=== PATIENT | female | born 1965 | race Caucasian/White ===

== ENCOUNTER 2021-11-06 19:37 | Emergency (ER) | payer MEDICAID, SELFPAY ==
[2021-11-06 20:17] VITALS: BP 153/89; PULSE 84; RESP 18; TEMP 36.7; O2SAT 98; BMI 20.7
--- NOTE | 2021-11-06 20:59 | XRR_ITS ---
PROCEDURE INFORMATION: Exam: XR Left Hip Exam date and time: 11/06/2021 9:25 PM Age: 55 years old Clinical indication: Hip pain; Left hip; Prior surgery; Surgery date: <1 month; Surgery type: Lt hip; Additional info: Left hip pain, heavy lifting S/P surgery early October TECHNIQUE: Imaging protocol: XR Left hip. Views: 2 or 3 views hip with pelvis when performed. COMPARISON: No relevant prior studies available. FINDINGS: Bones/joints: No acute fracture. Left hip arthroplasty with cerclage wires noted in expected alignment. Soft tissues: Unremarkable. XR/XR hip LT 2-3V wo/w pel* [id number] IMPRESSION: No acute findings.
[2021-11-06 23:37] VITALS: BP 182/100; PULSE 80; RESP 16; O2SAT 96
[2021-11-07] MEDS: amlodipine 10 mg Tablet PO (00:17)
[2021-11-07] MEDS: labetalol 5 mg/mL SDV 20mL 20 MG IVP (00:17)
--- NOTE | 2021-11-07 16:44 | ED_ITS ---
HPI - Extremity Problem General: Chief complaint: Extremity Injury, Lower Stated complaint: Pain from post hip surgery L Time Seen by Provider: 11/06/21 23:11 Source: patient History of Present Illness: 55-year-old female who had left hip arthroplasty with cerclage wire placement around 3 weeks ago at an outside facility. She was lifting on something earlier today, and felt somewhat of a pop. She has experienced increasing pain since then. She took half of 1 hydrocodone 5/325 mg pill without relief. She is able to bear weight, but it is quite painful. She denies significant numbness, tingling, other problems. She is hypertensive on arrival. MD Complaint: extremity pain Onset (ago): hour(s) Pain Consistency: constant Location: left and lower extremity Quality: stabbing and aching Relieving factors: nothing Exacerbating factors: weight bearing Associated symptoms: Deny chest pain, fever(s) or short of breath Context: recent surgery/procedure Review of Systems Const: Denies: fever(s) Eyes: Denies: change in vision Card: Denies: chest pain Resp: Denies: dyspnea GI: Denies: abdominal pain or vomiting Neuro: Denies: numbness in extremities Physical Exam Const: COMMON NORMALS: no acute distress GENERAL APPEARANCE: frail appearing; not ill appearing HENMT: COMMON NORMALS: normocephalic and atraumatic HEAD & SCALP: normocephalic and atraumatic FACE & SINUS: normal facial exam Eye: COMMON NORMALS: Equal, round and reactive pupils present and EOMs intact bilaterally PUPIL: Yes Equal, round and reactive pupils present Neck/C-Spine: GENERAL: Yes trachea midline Chest: CHEST: Yes Symmetrical chest wall rise Resp: COMMON NORMALS: normal respiratory effort, No use of accessory muscles and clear to auscultation bilaterally AUSCULTATION: clear to auscultation bilaterally Cardio: COMMON NORMALS: regular rate and regular rhythm RATE: regular rate RHYTHM: regular rhythm GI: COMMON NORMALS: Normal to inspection, nondistended, normoactive bowel sounds present, Soft to palpation and non-tender PALPATION: Yes Soft to palpation Extremity: NARRATIVE EXTREMITY EXAM: Examination left lower extremity reveals a very clean completely healed lateral hip surgical scar. There is no significant swelling. There is mild tenderness anteriorly. There is some pain with internal rotation and external rotation gently. Pulses and sensation are intact distally. There is no palpable mass. Neuro: LISA COMA SCALE: document GCS findings [place] coma scale eye opening: Spontaneous Lisa coma scale verbal response: Orientated [place] coma scale motor response: Obey commands Lisa coma scale total score: 15 Course Vital Signs: Vital signs: Vital Signs Temperature 98.1 F 11/06/21 20:17 Pulse Rate 80 11/06/21 23:37 Respiratory Rate 16 11/06/21 23:37 Blood Pressure 182/100 11/06/21 23:37 Pulse Oximetry 96 11/06/21 23:37 MDM - Extremity (Nontraumatic) Medical Decision Making Surgical incision looks excellent. No sign of hemorrhage. X-ray is normal. She has no calf tenderness. No edema. She will be allowed discharge. Lab Data Radiology Impressions Hip/Pelvis X-Ray 11/06/21 20:59 IMPRESSION: No acute findings. Discharge Plan Discharge Patient Disposition: Home Clinical Impression: Acute hip pain Qualifiers: Laterality: left Qualified Code(s): M25.552 - Pain in left hip Condition: Stable Prescriptions: New oxycodone-acetaminophen 5-325 mg tablet 1 tab PO TID PRN (Reason: pain) Qty: 7 0RF Discharge Orders: Discharge ED (Routine); Ordered 11/07/21 Ordered By: Jamal Todd Referrals: Reema Delgado, BELT AND LINK ASSEMBLY SUPERVISOR [Primary Care Provider] - Discharge Diet: Advance as tolerated Discharge Activity: Increase activity as tolerated Patient Instructions: Hip Pain (ED), Opioid Safety Activity Restrictions/Additional Instructions: Return for fever, worsening pain despite treatment, worsening swelling, any other concerning symptoms. Ice to the hip will help with pain. Call your surgeon for follow-up on Tuesday. Coding Level of Care Code ED Occupational Health Physician for Yocasta Ramirez
== END 2021-11-07 00:57 | disposition home or self-care (01) ==
PROVIDERS: Emergency Provider Emergency Medicine; PCP Nurse Practitioner Family
DX: M25.552 Pain in left hip (principal); Z98.890 Other specified postprocedural states; Z96.642 Presence of left artificial hip joint
CPT/HCPCS: 73502; 96374; 99283; J3490

== ENCOUNTER 2021-12-04 17:02 | Emergency (ER) | payer MEDICAID, SELFPAY ==
[2021-12-04 18:18] VITALS: BP 89/58; PULSE 69; RESP 15; TEMP 36.9; O2SAT 96; BMI 19.5
--- NOTE | 2021-12-04 19:46 | XRR_ITS ---
PROCEDURE INFORMATION: Exam: XR Left Knee Exam date and time: 12/04/2021 8:38 PM Age: 56 years old Clinical indication: Injury or trauma; Fall; Blunt trauma; Knee; Left; Additional info: Knee pain TECHNIQUE: Imaging protocol: Radiologic exam of the Left knee. Views: 1 or 2 views. COMPARISON: No relevant prior studies available. FINDINGS: Bones/joints: There is diffuse osteopenia. Diffuse mild joint space narrowing is noted in the weight-bearing knee joint. There is no knee joint effusion. There is no intra-articular body. No acute fracture or dislocation. No chondrocalcinosis. Soft tissues: There is no foreign body. XR/XR knee LT 1-2V [id number] IMPRESSION: No acute bony abnormality.
--- NOTE | 2021-12-04 19:46 | XRR_ITS ---
PROCEDURE INFORMATION: Exam: XR Left Hip Exam date and time: 12/04/2021 8:32 PM Age: 56 years old Clinical indication: Injury or trauma; Fall; Blunt trauma (contusions or hematomas); Left; Hip; Additional info: L hip pain TECHNIQUE: Imaging protocol: Radiologic exam of the Left hip. Views: 2 or 3 views hip with pelvis when performed. COMPARISON: CR (PELVIS, ) 11/06/2021 9:25 PM FINDINGS: Bones/joints: No dislocation. No acute fracture. There is a satisfactory appearance of the left hip arthroplasty and cerclage wire. No hardware fracture or loosening. There is osteopenia. Soft tissues: Unremarkable. XR/XR hip LT 2-3V wo/w pel* [id number] IMPRESSION: No acute findings.
--- NOTE | 2021-12-04 19:49 | ED_ITS ---
HPI - General Adult General: Chief complaint: Extremity Injury, Lower Stated complaint: fall Left hip pain Time Seen by Provider: 12/04/21 19:22 History of Present Illness: Patient is a 56-year-old female with history Eliquis use presenting to emergency room after episode of fall at 9 PM. Patient was walking outside in the park when she felt lightheaded and fell onto her left side. She complains of left hip and left knee pain patient denies any LOC or head injury. Denies any other pain or. Patient has been unable to ambulate without difficulty. Patient denies any associate chest pain, shortness of breath or palpitation prior to the episode of fall. No other complaints at this time. Onset:9pm yesterday Duration: ongoing Location:home Severity:moderte Associated symptoms: Deny chest pain, dyspnea, nausea, rash, palpitations or vom iting Review of Systems Const: Denies: fever(s) or chills Eyes: Denies: change in vision ENMT: Denies: mouth pain Card: Denies: chest pain or palpitations Resp: Denies: dyspnea or non-productive cough GI: Denies: abdominal pain, nausea, vomiting or diarrhea : Denies: dysuria Musc: Reports: extremity pain (+L knee and L hip pain) Skin/Breast: Denies: rash or new lesions Neuro: Reports: other (+transient light-headedness around 9pm yesterday in the park); Denies: weakness in extremities (+) Psych: Reports: other (Normal mood) Bogdan/Lymph: Denies: easy bruising PFS ED PFSH: Social History (Updated 12/04/21 @ 19:51 by Tyler Falcon MD) Smoking and tobacco status: never smoked Alcohol intake: never Substance/Drug Use: never Physical Exam Const: COMMON NORMALS: alert HENMT: COMMON NORMALS: atraumatic HEAD & SCALP: atraumatic MOUTH: moist mucous membranes not abnormal Eye: COMMON NORMALS: EOMs intact bilaterally and conjunctivae normal CONJUNCTIVA: Yes conjunctivae normal Neck/C-Spine: COMMON NORMALS: full ROM and supple Resp: COMMON NORMALS: normal respiratory effort and clear to auscultation bilaterally AUSCULTATION: clear to auscultation bilaterally Cardio: COMMON NORMALS: regular rate RATE: regular rate GI: COMMON NORMALS: Soft to palpation and non-tender PALPATION: Yes Soft to palpation Extremity: COMMON NORMALS: full ROM Neuro: SENSORIUM/ORIENTATION: Yes alert MOTOR EXAM: No Abnormal motor strength present and Other motor observations present (no focal motor deficits) Psych: COMMON NORMALS: speech normal SPEECH: Yes normal speech MOOD & AFFECT: Yes euthymic mood Course Vital Signs: Vital signs: Vital Signs Temperature 98.5 F 12/04/21 18:18 Pulse Rate 68 12/04/21 22:15 Respiratory Rate 20 H 12/04/21 22:15 Blood Pressure 170/108 12/04/21 22:15 Pulse Oximetry 98 12/04/21 22:15 MDM - General Adult Medical Decision Making 56-year-old female presented to the emergency room after fall with complaints of left hip and left knee pain. Patient reports lightheadedness yesterday night. Troponin x2 with delta less than 5. EKG is nonischemic. Patient did not complain of chest pain. I doubt ACS at this time. X-ray imaging negative for any acute findings of the L hip and knee. Patient is given close follow-up for reassessment. Patient again reassured that she did not hit her head. Will not perform CT scan of the head today. If patient still complains of hip or knee pain, have instructed patient repeat x-ray in 1 week. Rx: Tylenol, lidocaine patch, and menthol PRN pain Disposition: Discharge. Patient counseled regarding diagnostic impression, treatment plan. Patient given ED strict return precautions to return for continuation, worsening, or development of new symptoms. Instructed to f/u w/ PCP regarding symptoms today. Patient verbalized understanding. Lab Data : 12/04/21 20:20 12/04/21 20:20 Radiology Impressions Hip/Pelvis X-Ray 12/04/21 19:46 IMPRESSION: No acute findings. Knee X-Ray 12/04/21 19:46 IMPRESSION: No acute bony abnormality. Laboratory Results WBC 7.6 10^3/uL (4.0-10.0) 12/04/21 20:20 RBC 4.27 10^6/uL (4.1-5.3) 12/04/21 20:20 Hgb 12.0 g/dL (11.5-15.3) 12/04/21 20:20 Hct 37.5 % (37.0-47.0) 12/04/21 20:20 MCV 87.8 fl (81-99) 12/04/21 20:20 MCH 28.1 pg (28.0-34.0) 12/04/21 20:20 MCHC 32.0 g/dL (30.0-36.0) 12/04/21 20:20 RDW 13.4 % (12.1-15.1) 12/04/21 20:20 Plt Count 348 10^3/cmm (130-400) 12/04/21 20:20 MPV 9.2 fL (7.4-10.4) 12/04/21 20:20 Neut % (Auto) 39.3 % 12/04/21 20:20 Lymph % (Auto) 43.1 % 12/04/21 20:20 [place] % (Auto) 10.4 % 12/04/21 20:20 Eos % (Auto) 5.9 % 12/04/21 20:20 Baso % (Auto) 1.2 % 12/04/21 20:20 Neut # (Auto) 2.97 10^3/uL (1.8-7.7) 12/04/21 20:20 Lymph # (Auto) 3.3 10^3/uL (0.8-4.8) 12/04/21 20:20 [place] # (Auto) 0.8 10^3/uL (0.2-0.9) 12/04/21 20:20 Eos # (Auto) 0.5 10^3/uL (0.0-0.8) 12/04/21 20:20 Baso # (Auto) 0.1 10^3/uL (0.0-0.1) 12/04/21 20:20 Nucleated RBC % (auto) 0 % 12/04/21 20:20 Nucleated RBCs # 0.0 /100WBC 12/04/21 20:20 Sodium 134 mmol/L (136-145) L 12/04/21 20:20 Potassium 4.6 mmol/L (3.5-5.1) 12/04/21 20:20 Chloride 98 mmol/L (98-107) 12/04/21 20:20 Carbon Dioxide 24 mmol/L (22-29) 12/04/21 20:20 Anion Gap 16.6 (5-19) 12/04/21 20:20 BUN 25 mg/dL (6-20) H 12/04/21 20:20 Creatinine 0.7 mg/dL (0.5-0.9) 12/04/21 20:20 GFR Calculation 86.6 mL/min (90-130) L 12/04/21 20:20 Glucose 100 mg/dL (65-115) 12/04/21 20:20 Calculated Osmolality 282 mOsm/kg (285-295) L 12/04/21 20:20 Calcium 9.4 mg/dL (8.5-10.5) 12/04/21 20:20 Troponin T Baseline 23 ng/L (0-10) H 12/04/21 20:20 Imaging Data Other Imaging: Radiologist's impression: [employer] [address] [address] Scan Report Signed Patient: Ronnie Bourgeois Unit #: [id number] : 09/09/1964 Age/Sex: 57 / F ADM Date: 12/04/21 Loc: ER Room/Bed: Attending Dr: Ordering Provider/Ordering MD: Tyler Falcon MD Date of Service: 12/04/21 Procedure(s): CT head wo con* [id number] Accession Number(s): [id number] Report Number: [id number] PROCEDURE INFORMATION: Exam: CT Head Without Contrast Exam date and time: 12/04/2021 9:18 PM Age: 57 years old Clinical indication: Pain; Headache TECHNIQUE: Imaging protocol: Computed tomography of the head without contrast. Radiation optimization: All CT scans at this facility use at least one of these dose optimization techniques: automated exposure control; mA and/or kV adjustment per patient size (includes targeted exams where dose is matched to clinical indication); or iterative reconstruction. COMPARISON: 1. CT head wo con* [id number] 2021-10-10 17:[address] head wo con* [id number] 2016-11-21 13:45 RADIATION DOSE METRICS: Total DLP (mGy-cm): 864.64 FINDINGS: Brain: Normal. No hemorrhage. Unremarkable white matter. No mass effect. Cerebral ventricles: No ventriculomegaly. Paranasal sinuses: Visualized sinuses are unremarkable. No fluid levels. Mastoid air cells: Visualized mastoid air cells are well aerated. Bones/joints: Unchanged heterogeneous calvarium, uncertain etiology, correlate for neoplastic, or endocrine causes. Soft tissues: Unremarkable. CT/CT head wo con* [id number] IMPRESSION: 1. Unchanged heterogeneous calvarium, of uncertain etiology, correlate for neoplastic, or endocrine causes. 2. No acute intracranial abnormality. ? Dictated By: Jim Alcaraz MD Signed By: Jim Alcaraz MD Signed Date/Time: 12/04/212133 DD/ [address] [address] XRay Report Signed Patient: Gisell Calvillo Unit #: [id number] : 1965 Age/Sex: 56 / F ADM Date: 12/04/21 Loc: ER Room/Bed: Attending Dr: Ordering Provider/Ordering MD: Tyler Falcon MD Date of Service: 12/04/21 Procedure(s): XR hip LT 2-3V wo/w pel* [id number] Accession Number(s): [id number] Report Number: [id number] PROCEDURE INFORMATION: Exam: XR Left Hip Exam date and time: 12/04/2021 8:32 PM Age: 56 years old Clinical indication: Injury or trauma; Fall; Blunt trauma (contusions or hematomas); Left; Hip; Additional info: L hip pain TECHNIQUE: Imaging protocol: Radiologic exam of the Left hip. Views: 2 or 3 views hip with pelvis when performed. COMPARISON: CR (PELVIS, ) 11/06/2021 9:25 PM FINDINGS: Bones/joints: No dislocation. No acute fracture. There is a satisfactory appearance of the left hip arthroplasty and cerclage wire. No hardware fracture or loosening. There is osteopenia. Soft tissues: Unremarkable. XR/XR hip LT 2-3V wo/w pel* [id number] IMPRESSION: No acute findings. ? Dictated By: Patricia Bernardo Signed By: Patricia Bernardo Signed Date/Time: 12/04/212114 DD/ 31 Discharge Plan Discharge Prescriptions: No Action oxycodone-acetaminophen 5-325 mg tablet 1 tab PO TID PRN (Reason: pain) Qty: 7 0RF Referrals: Reema Delgado, PAINT FORMULATOR [Primary Care Provider] - Coding Level of Care Code ED Parking Meter Mechanic for Chg Fwd Exam Comprehensive
[2021-12-04 20:25] LABS: Basophils # 0.1 10^3/uL (0.0-0.1); Basophils % 1.2 %; Eosinophils # 0.5 10^3/uL (0.0-0.8); Eosinophils % 5.9 %; Hematocrit 37.5 % (37.0-47.0); Lymphocytes # 3.3 10^3/uL (0.8-4.8); Lymphocytes % 43.1 %; Mean Corpuscular Hemoglobin 28.1 pg (28.0-34.0); Mean Corpuscular Volume 87.8 fl (81-99); Mean Platelet Volume 9.2 fL (7.4-10.4); Monocytes # 0.8 10^3/uL (0.2-0.9); Monocytes % 10.4 %; Neutrophils # 2.97 10^3/uL (1.8-7.7); Neutrophils % 39.3 %; Nucleated Red Blood Cells % 0 %; Platelet Count 348 10^3/cmm (130-400); Red Blood Count 4.27 10^6/uL (4.1-5.3); Red Cell Distribution Width 13.4 % (12.1-15.1); White Blood Count 7.6 10^3/uL (4.0-10.0)
[2021-12-04 20:44] LABS: Troponin(5th) Baseline 23 ng/L (0-10)
[2021-12-04 20:46] LABS: Anion Gap 16.6 (5-19); Blood Urea Nitrogen 25 mg/dL (6-20); Calcium 9.4 mg/dL (8.5-10.5); Carbon Dioxide 24 mmol/L (22-29); Chloride 98 mmol/L (98-107); Glomerular Filtration Rate 86.6 mL/min (90-130); Glucose 100 mg/dL (65-115); Osmolality Calculated 282 mOsm/kg (285-295); Potassium 4.6 mmol/L (3.5-5.1); Sodium 134 mmol/L (136-145)
--- NOTE | 2021-12-04 21:46 | ECG_ITS ---
[facility] Test Date: 2021-12-04 Pat Name: Gisell Calvillo Department: Room: Gender: Female Digital Media Coordinator: : 1965 Requested By: Tyler Falcon Order Number: [id number] MD: Carson Lopez M.D. Measurements Intervals [place] Rate: 68 P: 72 MN: 147 QRS: 66 QRSD: 88 T: 56 QT: 422 QTc: 450 Interpretive Statements SINUS RHYTHM No previous ECG available for comparison Electronically Signed On 12-05-2021 12:34:57 CDT by Carson Lopez M.D. [id number]
[2021-12-04 22:15] VITALS: BP 170/108; PULSE 68; RESP 20; O2SAT 98
[2021-12-04 22:45] LABS: Troponin 5 2HR 20.39 ng/L (0-10); Troponin 5 2HR Delta -2.61 ABS# (0-10)
[2021-12-04 22:56] VITALS: BP 170/100; PULSE 73; RESP 17; TEMP 36.8; O2SAT 95
[2021-12-04 22:59] VITALS: BP 170/100; PULSE 73; RESP 17; TEMP 36.8; O2SAT 95
== END 2021-12-04 23:00 | disposition home or self-care (01) ==
PROVIDERS: Emergency Provider Emergency Medicine; PCP Nurse Practitioner Family
DX: M25.552 Pain in left hip (principal)
CPT/HCPCS: 73502; 73560; 80048; 84484; 85025; 93005; 99284

== ENCOUNTER 2022-03-24 13:16 | Emergency (ER) | payer MEDICAID, SELFPAY ==
[2022-03-24] VITALS (58 sets, daily range): BP systolic 113–177; BP diastolic 72–93; PULSE 103–117; RESP 9–44; TEMP 36.6; O2SAT 82–100; BMI 20.7
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
[2022-03-24 13:32] LABS: Glucose Point of Care 434 mg/dL (70-110)
[2022-03-24 13:35] LABS: Basophils # 0.1 10^3/uL (0.0-0.1); Basophils % 0.4 %; Eosinophils % 0.2 %; Hematocrit 45.3 % (37.0-47.0); Hemoglobin 15.2 g/dL (11.5-15.3); Lymphocytes # 2.6 10^3/uL (0.8-4.8); Lymphocytes % 15.9 %; Mean Corpuscular HGB Conc 33.6 g/dL (30.0-36.0); Mean Corpuscular Hemoglobin 28.8 pg (28.0-34.0); Mean Platelet Volume 10.3 fL (7.4-10.4); Monocytes % 6.2 %; Neutrophils # 12.52 10^3/uL (1.8-7.7); Neutrophils % 76.9 %; Nucleated Red Blood Cells % 0 %; Platelet Count 512 10^3/cmm (130-400); Red Blood Count 5.27 10^6/uL (4.1-5.3); Red Cell Distribution Width 13.2 % (12.1-15.1); White Blood Count 16.3 10^3/uL (4.0-10.0)
[2022-03-24] MEDS: sodium chloride 0.9% 1,000 ML 999 ML IV ×2 (13:56→16:20)
[2022-03-24 13:58] LABS: Alanine Aminotransferase 18 U/L (0-33); Albumin Level 4.1 g/dL (3.5-5.2); Alkaline Phosphatase 172 U/L (35-105); Blood Urea Nitrogen 26 mg/dL (6-20); Calcium 10.6 mg/dL (8.5-10.5); Carbon Dioxide 21 mmol/L (22-29); Chloride 83 mmol/L (98-107); Globulin 3.6 g/dL (1.3-4.6); Glomerular Filtration Rate 64.8 mL/min (90-130); Glucose 473 mg/dL (65-115); Osmolality Calculated 286 mOsm/kg (285-295); Sodium 125 mmol/L (136-145); Total Bilirubin 0.5 mg/dL (0.15-1.2); Total Protein 7.7 g/dL (6.6-8.7)
[2022-03-24 13:59] LABS: Aspartate Amino Transferase 18 U/L (0-32)
[2022-03-24 14:03] LABS: Ketone (Acetest) Serum Negative (Negative)
[2022-03-24 15:08] LABS: Glucose Point of Care 427 mg/dL (70-110)
[2022-03-24 16:53] LABS: Glucose Point of Care 311 mg/dL (70-110)
[2022-03-24 17:14] LABS: Bilirubin Urine Neg (Negative); Blood Urine Neg (Negative); Glucose Urine UA 4+ (Normal); Ketones Urine 2+ (Negative); Leukocyte Esterase Urine Negative (Negative); Nitrate Urine Negative (Negative); Protein Urine 1+ (Negative); Urine Appearance Clear (CLEAR); Urine Color Yellow (Yellow); Urobilinogen Urine Neg (Negative); pH Urine 5 (5-7)
[2022-03-24 17:15] LABS: Add Urine Microscopic? YES
[2022-03-24 17:19] LABS: Amorphous Sediment Urine 2+ /hpf; Squamous Epithelial Cell Urine 0-4 /hpf (0-5)
[2022-03-24 18:16] LABS: Glucose Point of Care 281 mg/dL (70-110)
[2022-03-24] MEDS: insulin glargine 100 units/1 mL 20 UNIT SUBCUT (18:45)
== END 2022-03-24 19:41 | disposition home or self-care (01) ==
PROVIDERS: Emergency Provider Emergency Medicine; PCP Nurse Practitioner Family
DX: E11.65 Type 2 diabetes mellitus with hyperglycemia (principal); E86.0 Dehydration; Z79.84 Long term (current) use of oral hypoglycemic drugs; Z79.82 Long term (current) use of aspirin; Z79.4 Long term (current) use of insulin
CPT/HCPCS: 36416; 80053; 81001; 82009; 82962; 85025; 96360; 96361; 96372; 99284; J7030

== ENCOUNTER 2022-04-10 01:31 | Inpatient (IN) | payer OTHER, MEDICAID, SELFPAY ==
[2022-04-10] VITALS (19 sets, daily range): BP systolic 99–152; BP diastolic 58–89; PULSE 71–112; RESP 11–19; TEMP 36.3–39.8; O2SAT 92–99; BMI 20.7
--- NOTE | 2022-04-10 01:56 | XRR_ITS ---
PROCEDURE INFORMATION: Exam: XR Chest Exam date and time: 04/10/2022 2:24 AM Age: 56 years old Clinical indication: Fever; Additional info: Fever AMS TECHNIQUE: Imaging protocol: Radiologic exam of the chest. Views: 1 view. COMPARISON: No relevant prior studies available. FINDINGS: Tubes, catheters and devices: Monitor leads project over the chest. Lungs: No significant or acute findings. No consolidation. Pleural spaces: No significant costophrenic angle blunting. No pneumothorax. Heart/Mediastinum: Heart size is normal. Bones/joints: No acute osseous abnormality. XR/XR chest 1V portable [id number] IMPRESSION: No acute abnormality demonstrated.
--- NOTE | 2022-04-10 01:56 | CTR_ITS ---
PROCEDURE INFORMATION: Exam: CT Head Without Contrast Exam date and time: 04/10/2022 2:34 AM Age: 56 years old Clinical indication: Fever; Additional info: Fever AMS TECHNIQUE: Imaging protocol: Computed tomography of the head without contrast. Radiation optimization: All CT scans at this facility use at least one of these dose optimization techniques: automated exposure control; mA and/or kV adjustment per patient size (includes targeted exams where dose is matched to clinical indication); or iterative reconstruction. COMPARISON: No relevant prior studies available. RADIATION DOSE METRICS: Total DLP (mGy-cm): 989.58 FINDINGS: Brain: Mild prominence of the sulci consistent with diffuse atrophy. No mass effect or midline shift. Mild periventricular and subcortical white matter low-attenuation consistent with chronic small vessel ischemic changes. Bilateral basal ganglia and caudate nuclei small remote lacunar infarcts. No evidence of acute intracranial hemorrhage. Cerebral ventricles: Ventricular prominence proportional to sulci. No hydrocephalus. Paranasal sinuses: No significant or acute abnormality. No air-fluid levels. Mastoid air cells: No acute abnormality. No significant mastoid effusion. Bones/joints: No acute osseous abnormality. No acute fracture. Soft tissues: No significant soft tissue abnormalities. CT/CT head wo con* [id number] IMPRESSION: Mild atrophy and chronic/remote ischemic changes without evidence of superimposed acute infarct, hemorrhage or mass-effect at this time.
[2022-04-10 02:07] LABS: Glucose Point of Care 268 mg/dL (70-110)
[2022-04-10 02:17] LABS: Basophils % 0.3 %; Hematocrit 30.4 % (37.0-47.0); Hemoglobin 9.6 g/dL (11.5-15.3); Lymphocytes # 0.8 10^3/uL (0.8-4.8); Lymphocytes % 8.2 %; Mean Corpuscular HGB Conc 31.6 g/dL (30.0-36.0); Mean Corpuscular Hemoglobin 28.1 pg (28.0-34.0); Mean Corpuscular Volume 88.9 fl (81-99); Mean Platelet Volume 8.7 fL (7.4-10.4); Monocytes # 0.8 10^3/uL (0.2-0.9); Monocytes % 8.3 %; Neutrophils # 8.08 10^3/uL (1.8-7.7); Neutrophils % 82.8 %; Nucleated Red Blood Cells % 0 %; Platelet Count 401 10^3/cmm (130-400); Red Blood Count 3.42 10^6/uL (4.1-5.3); Red Cell Distribution Width 13.1 % (12.1-15.1); White Blood Count 9.8 10^3/uL (4.0-10.0)
--- NOTE | 2022-04-10 02:17 | W.ED.FEVER ---
Documented by User: Jamal Todd, 04/10/22 13:15 HPI - Fever General: Chief Complaint: Fever Stated Complaint: WEAKNESS Time Seen by Provider: 04/10/22 01:44 Source: patient and family History of Present Illness: 56-year-old female here with acute mental status change. She has had a couple falls last couple of days. She may or may not have had a syncopal episode tonight at home. No history of febrile illness, although she has a fever tonight. Family stated that her blood sugar was elevated at 600 yesterday, but they treated with insulin. It is 260 currently. MD elicited complaint: fever and weakness (Generalized) Onset (ago): hour(s) Context: other Exacerbating factors: nothing Relieving factors: nothing Associated symptoms: Reports abdominal pain, confusion and vomiting (once); Deny flank pain, chills, chest pain, cough, headache(s), rash or sore throat Treatments prior to arrival fever: none Review of Systems Const: Denies: fever(s), chills or body aches Eyes: Denies: change in vision Card: Denies: chest pain Resp: Denies: dyspnea, productive cough, non-productive cough or wheezing GI: Reports: abdominal pain and vomiting (once) : Denies: flank pain Skin/Breast: Denies: rash Neuro: Reports: confusion; Denies: headache(s) [facility] PFSH: Medical History (Updated 04/10/22 @ 08:23 by Zeb Benitez MD) History of hypertension History of type 2 diabetes mellitus Surgical History (Updated 04/10/22 @ 08:21 by Zeb Benitez MD) History of left hip replacement Family History (Updated 04/10/22 @ 08:21 by Zeb Benitez MD) Mother CAD (coronary artery disease) Social History (Updated 04/10/22 @ 08:21 by Zeb Benitez MD) Smoking and tobacco status: current some day smoker Alcohol intake: never Physical Exam Const: COMMON NORMALS: no acute distress GENERAL APPEARANCE: cooperative, ill appearing and frail appearing NUTRITIONAL APPEARANCE: thin ORIENTATION/CONSCIOUSNESS: Yes awake, Yes oriented to person and Yes oriented to place; not oriented to time HENMT: COMMON NORMALS: normocephalic, atraumatic and Normal external nose present HEAD & SCALP: normocephalic and atraumatic FACE & SINUS: normal facial exam and face symmetric NOSE: Normal external nose present MOUTH: Abnormal oral and palatal mucosa present (dry) Eye: COMMON NORMALS: Equal, round and reactive pupils present and EOMs intact bilaterally PUPIL: Yes Equal, round and reactive pupils present Neck/C-Spine: GENERAL: Yes trachea midline Chest: CHEST: Yes Symmetrical chest wall rise Resp: COMMON NORMALS: normal respiratory effort, No retractions, No use of accessory muscles and clear to auscultation bilaterally AUSCULTATION: clear to auscultation bilaterally Cardio: COMMON NORMALS: regular rate and regular rhythm RATE: regular rate RHYTHM: regular rhythm GI: COMMON NORMALS: Normal to inspection, nondistended, normoactive bowel sounds present Extremity: COMMON NORMALS: no pedal edema Neuro: LISA COMA SCALE: document GCS findings Lisa coma scale eye opening: Spontaneous Lisa coma scale verbal response: Confused [place] coma scale motor response: Obey commands [place] coma scale total score: 14 SENSORIUM/ORIENTATION: Yes oriented to person, Yes oriented to place and No oriented to time CRANIAL NERVES: Yes CN normal except as noted SENSORY EXAM: Yes extremities (intact) MOTOR EXAM: Normal motor muscle tone present throughout Psych: COMMON NORMALS: cooperative and speech normal SPEECH: Yes normal speech Skin: COMMON NORMALS: no rashes or lesions noted GENERAL SKIN EXAM: no rashes or lesions noted Course Vital Signs: Vital signs: Vital Signs Temperature 97.4 F L 04/10/22 11:54 Pulse Rate 101 H 04/10/22 11:54 Respiratory Rate 16 04/10/22 11:54 Blood Pressure 152/89 04/10/22 11:54 Pulse Oximetry 16 L 04/10/22 11:54 Oxygen Delivery Me thod 04/10/22 11:18 MDM - Fever Lab Data : 04/10/22 02:00 04/10/22 02:00 Radiology Impressions Chest X-Ray 04/10/22 01:56 IMPRESSION: No acute abnormality demonstrated. Head CT 04/10/22 01:56 IMPRESSION: Mild atrophy and chronic/remote ischemic changes without evidence of superimposed acute infarct, hemorrhage or mass-effect at this time. Abdomen/Pelvis CT 04/10/22 02:20 IMPRESSION: 1. Thickened urinary bladder suggestive of cystitis/UTI. 2. Incompletely visualized approximately 1.6 x 1.6 cm circumscribed fluid attenuation cyst or collection within the midline perineum. Differential diagnosis includes small posterior midline Bartholin cyst versus posterior urethral diverticulum versus small perineal abscess. 3. Previous hysterectomy. Chest CT 04/10/22 07:59 IMPRESSION: 1. No acute findings. 2. There is a 3 mm left upper lobe pulmonary nodule. For patients at low risk (minimal or absent history of smoking and of other known risk factors), no routine follow-up is indicated. For patients at high risk (history of smoking or of other known risk factors), consider optional CT Chest at 12 months. (Reference: Angie) REFERENCES: Angie Fournier, et al. Guidelines for Management of Incidental Pulmonary Nodules Detected on CT Images: From the Fleischner Society 2017. Radiology. 2017;284(1):228-243. Laboratory Results WBC 9.8 10^3/uL (4.0-10.0) 04/10/22 02:00 RBC 3.42 10^6/uL (4.1-5.3) L 04/10/22 02:00 Hgb 9.6 g/dL (11.5-15.3) L 04/10/22 02:00 Hct 30.4 % (37.0-47.0) L 04/10/22 02:00 MCV 88.9 fl (81-99) 04/10/22 02:00 MCH 28.1 pg (28.0-34.0) 04/10/22 02:00 MCHC 31.6 g/dL (30.0-36.0) 04/10/22 02:00 RDW 13.1 % (12.1-15.1) 04/10/22 02:00 Plt Count 401 10^3/cmm (130-400) H 04/10/22 02:00 MPV 8.7 fL (7.4-10.4) 04/10/22 02:00 Neut % (Auto) 82.8 % 04/10/22 02:00 Lymph % (Auto) 8.2 % 04/10/22 02:00 [place] % (Auto) 8.3 % 04/10/22 02:00 Eos % (Auto) 0.0 % 04/10/22 02:00 Baso % (Auto) 0.3 % 04/10/22 02:00 Neut # (Auto) 8.08 10^3/uL (1.8-7.7) H 04/10/22 02:00 Lymph # (Auto) 0.8 10^3/uL (0.8-4.8) 04/10/22 02:00 [place] # (Auto) 0.8 10^3/uL (0.2-0.9) 04/10/22 02:00 Eos # (Auto) 0.0 10^3/uL (0.0-0.8) 04/10/22 02:00 Baso # (Auto) 0.0 10^3/uL (0.0-0.1) 04/10/22 02:00 Nucleated RBC % (auto) 0 % 04/10/22 02:00 Nucleated RBCs # 0.0 /100WBC 04/10/22 02:00 Sodium 125 mmol/L (136-145) L 04/10/22 02:00 Potassium 3.8 mmol/L (3.5-5.1) 04/10/22 02:00 Chloride 91 mmol/L (98-107) L 04/10/22 02:00 Carbon Dioxide 24 mmol/L (22-29) 04/10/22 02:00 Anion Gap 13.8 (5-19) 04/10/22 02:00 BUN 29 mg/dL (6-20) H 04/10/22 02:00 Creatinine 0.8 mg/dL (0.5-0.9) 04/10/22 02:00 GFR Calculation 74.2 mL/min (90-130) L 04/10/22 02:00 Glucose 253 mg/dL (65-115) H 04/10/22 02:00 POC Glucose 268 mg/dL (70-110) H 04/10/22 01:55 Calculated Osmolality 274 mOsm/kg (285-295) L 04/10/22 02:00 Lactate 0.9 mmol/L (0.5-2.2) 04/10/22 02:00 Calcium 8.1 mg/dL (8.5-10.5) L 04/10/22 02:00 Total Bilirubin 0.2 mg/dL (0.15-1.2) 04/10/22 02:00 AST 42 U/L (0-32) H 04/10/22 02:00 ALT 30 U/L (0-33) 04/10/22 02:00 Alkaline Phosphatase 114 U/L (35-105) H 04/10/22 02:00 Creatine Kinase 670 U/L (26-192) H* 04/10/22 02:00 Troponin T Baseline 20 ng/L (0-10) H 04/10/22 02:00 Troponin T 120 Minute 17.80 ng/L (0-10) H 04/10/22 04:03 Delta Troponin T -2.20 ABS# (0-10) L 04/10/22 04:03 Troponin T Hi Sens 6Hr 16.50 ng/L (0-10) H 04/10/22 07:10 Troponin T Hi Sens 6Hr Delta -3.50 ng/L (0-12) L 04/10/22 07:10 C-Reactive Protein 199.7 mg/L (0.0-4.9) H 04/10/22 02:00 Total Protein 6.6 g/dL (6.6-8.7) 04/10/22 02:00 Albumin 3.2 g/dL (3.5-5.2) L 04/10/22 02:00 Globulin 3.4 g/dL (1.3-4.6) 04/10/22 02:00 Procalcitonin 2.92 ng/mL (0-0.5) H 04/10/22 02:00 Urine Color Colorless (Yellow) 04/10/22 01:56 Urine Appearance Clear (CLEAR) 04/10/22 01:56 Urine pH 6 (5-7) 04/10/22 01:56 Ur Specific [place] 1.005 (1.005-1.030) 04/10/22 01:56 Urine Protein 1+ (Negative) H 04/10/22 01:56 Urine Glucose (UA) 4+ (Normal) H 04/10/22 01:56 Urine Ketones Negative (Negative) 04/10/22 01:56 Urine Blood 3+ (Negative) H 04/10/22 01:56 Urine Nitrate Negative (Negative) 04/10/22 01:56 Urine Bilirubin Neg (Negative) 04/10/22 01:56 Urine Urobilinogen Norm mg/dL (Negative) 04/10/22 01:56 Ur Leukocyte Esterase Trace (Negative) H 04/10/22 01:56 Urine RBC 0-4 /hpf (0-2) H 04/10/22 01:56 Urine WBC None /hpf (0-5) 04/10/22 01:56 Ur Squamous Epith Cells None /hpf (0-5) 04/10/22 01:56 Amorphous Sediment Not Reportable 04/10/22 01:56 Urine Bacteria None /hpf (NONE) 04/10/22 01:56 Ethyl Alcohol < 10 mg/dL (0-10) 04/10/22 02:00 SARS-CoV-2 Ag (Rapid) negative (Negative) 04/10/22 02:00 Discharge Plan Discharge Patient Disposition: Admitted As Inpatient Admit Provider: Zeb Benitez Clinical Impression: Fever, Confusion, Hyponatremia Condition: Stable Coding Level of Care Code ED Director Business Development for Chg Fwd Exam Comprehensive Documented by User: Errol Aguilar MD 04/10/22 07:51 HPI - Fever General: Chief Complaint: Fever Stated Complaint: WEAKNESS Time Seen by Provider: 04/10/22 01:44 [facility] PFSH: Medical History (Updated 04/10/22 @ 08:23 by Zeb Benitez MD) History of hypertension History of type 2 diabetes mellitus Surgical History (Updated 04/10/22 @ 08:21 by Zeb Benitez MD) History of left hip replacement Family History (Updated 04/10/22 @ 08:21 by Zeb Benitez MD) Mother CAD (coronary artery disease) Social History (Updated 04/10/22 @ 08:21 by Zeb Benitez MD) Smoking and tobacco status: current some day smoker Alcohol intake: never Physical Exam Neuro: LISA COMA SCALE: document GCS findings Lisa coma scale total score: 14 Course Vital Signs: Vital signs: Vital Signs Temperature 97.4 F L 04/10/22 11:54 Pulse Rate 101 H 04/10/22 11:54 Respiratory Rate 16 04/10/22 11:54 Blood Pressure 152/89 11/05/22 11:54 Pulse Oximetry 16 L 04/10/22 11:54 Oxygen Delivery Me thod 04/10/22 11:18 MDM - Fever Medical Decision Making Patient presents here with fever she had some acute confusion her confusions improved here after Tylenol I took patient over from Dr. Todd pending CT scan and showed no acute abnormalities saw possible cyst or abscess to the perineum I did go evaluate that no signs of abscess no redness no tenderness to touch on my exam spoke to the hospitalist will admit she also is hyponatremic. Lab Data : 04/10/22 02:00 04/10/22 02:00 Radiology Impressions Chest X-Ray 04/10/22 01:56 IMPRESSION: No acute abnormality demonstrated. Head CT 04/10/22 01:56 IMPRESSION: Mild atrophy and chronic/remote ischemic changes without evidence of superimposed acute infarct, hemorrhage or mass-effect at this time. Abdomen/Pelvis CT 04/10/22 02:20 IMPRESSION: 1. Thickened urinary bladder suggestive of cystitis/UTI. 2. Incompletely visualized approximately 1.6 x 1.6 cm circumscribed fluid attenuation cyst or collection within the midline perineum. Differential diagnosis includes small posterior midline Bartholin cyst versus posterior urethral diverticulum versus small perineal abscess. 3. Previous hysterectomy. Chest CT 04/10/22 07:59
--- NOTE | 2022-04-10 02:18 | ECG_ITS ---
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 Measurements Intervals [place] Rate: 110 P: 71 AR: 139 QRS: 65 QRSD: 82 T: 82 QT: 323 QTc: 439 Interpretive Statements SINUS TACHYCARDIA POSSIBLE LEFT ATRIAL ENLARGEMENT [-0.1mV P-WAVE IN V1/V2] NONSPECIFIC ST & T-WAVE ABNORMALITY Compared to ECG 12/04/2021 22:08:06 T-wave abnormality now present Sinus rhythm no longer present Electronically Signed On 04-10-2022 10:50:48 CDT by Hilda Maria M.D. [email or web address]
--- NOTE | 2022-04-10 02:20 | CTR_ITS ---
PROCEDURE INFORMATION: Exam: CT Abdomen And Pelvis With Contrast Exam date and time: 04/10/2022 2:37 AM Age: 56 years old Clinical indication: Fever; Additional info: Abdominal pain fever TECHNIQUE: Imaging protocol: Computed tomography of the abdomen and pelvis with contrast. Radiation optimization: All CT scans at this facility use at least one of these dose optimization techniques: automated exposure control; mA and/or kV adjustment per patient size (includes targeted exams where dose is matched to clinical indication); or iterative reconstruction. Contrast material: OMNI 350; Contrast volume: 100 ml; Contrast route: INTRAVENOUS (IV); COMPARISON: CR XR hip LT 2-3V wo/w pel* [id number] 12/04/2021 8:32 PM RADIATION DOSE METRICS: Total DLP (mGy-cm): 326.66 FINDINGS: Lungs: Posterolateral left basilar calcified granuloma. Liver: No acute abnormality. No mass. Gallbladder and bile ducts: No acute abnormality. No calcified stones. No ductal dilation. Pancreas: No acute abnormality. No ductal dilation. Spleen: Punctate splenic calcified granulomas. Adrenal glands: No acute abnormality. No mass. Kidneys and ureters: No acute abnormality. No hydronephrosis. Stomach and bowel: Fluid and ingested contents within stomach. No disproportionate large or small bowel distention. Moderate to large amount of stool within the colon. No evidence of diverticulitis. Appendix: No findings to suggest acute appendicitis. Intraperitoneal space: No significant fluid collection. No free air. Vasculature: Diffuse abdominal aortic atherosclerotic irregularity and calcification. Lymph nodes: No enlarged lymph nodes. Urinary bladder: Thickened urinary bladder suggestive of cystitis/UTI. Reproductive: Previous hysterectomy. Bones/joints: Previous left hip arthroplasty with metallic hardware in place. Soft tissues: Incompletely visualized approximately 1.6 x 1.6 cm circumscribed fluid attenuation cyst or collection within the midline perineum. CT/CT abdomen pelvis w con* [id number] IMPRESSION: 1. Thickened urinary bladder suggestive of cystitis/UTI. 2. Incompletely visualized approximately 1.6 x 1.6 cm circumscribed fluid attenuation cyst or collection within the midline perineum. Differential diagnosis includes small posterior midline Bartholin cyst versus posterior urethral diverticulum versus small perineal abscess. 3. Previous hysterectomy.
[2022-04-10] MEDS: acetaminophen 500 mg Tablet 1000 MG PO (02:24)
[2022-04-10 02:35] LABS: Ketones Urine Negative (Negative); Protein Urine 1+ (Negative); Specific Gravity, Urine 1.005 (1.005-1.030); Urine Appearance Clear (CLEAR); Urine Color Colorless (Yellow); pH Urine 6 (5-7)
[2022-04-10 02:36] LABS: SARS Covid-2 Antigen negative (Negative)
[2022-04-10 02:36] LABS: Add Urine Microscopic? YES; Bilirubin Urine Neg (Negative); Blood Urine 3+ (Negative); Glucose Urine UA 4+ (Normal); Leukocyte Esterase Urine Trace (Negative); Nitrate Urine Negative (Negative); Urobilinogen Urine Norm (Negative)
[2022-04-10 02:38] LABS: RBC Urine 0-4 /hpf (0-2)
[2022-04-10 02:40] LABS: Alanine Aminotransferase 30 U/L (0-33); Albumin Level 3.2 g/dL (3.5-5.2); Alkaline Phosphatase 114 U/L (35-105); Anion Gap 13.8 (5-19); Aspartate Amino Transferase 42 U/L (0-32); Blood Urea Nitrogen 29 mg/dL (6-20); C Reactive Protein 199.7 mg/L (0.0-4.9); Calcium 8.1 mg/dL (8.5-10.5); Carbon Dioxide 24 mmol/L (22-29); Chloride 91 mmol/L (98-107); Globulin 3.4 g/dL (1.3-4.6); Glomerular Filtration Rate 74.2 mL/min (90-130); Glucose 253 mg/dL (65-115); Osmolality Calculated 274 mOsm/kg (285-295); Potassium 3.8 mmol/L (3.5-5.1); Sodium 125 mmol/L (136-145); Total Bilirubin 0.2 mg/dL (0.15-1.2); Total Protein 6.6 g/dL (6.6-8.7)
[2022-04-10 02:41] LABS: Lactate (Lactic Acid level) 0.9 mmol/L (0.5-2.2); Troponin(5th) Baseline 20 ng/L (0-10)
[2022-04-10] MEDS: iohexol 350 mg/mL 500 mL Btl (per mL) IV (02:42)
[2022-04-10 02:45] LABS: Procalcitonin 2.92 ng/mL (0-0.5)
[2022-04-10] MEDS: piperacillin-tazobactam 4.5 GM in sodium chloride 0.9% (plus) 50 ML IV (02:51)
[2022-04-10] MEDS: sodium chloride 0.9% 1,000 ML 999 ML IV ×2 (02:59→03:35)
[2022-04-10 03:21] LABS: Alcohol Level < 10 mg/dL (0-10)
[2022-04-10 03:22] LABS: Creatine Phosphokinase 670 U/L (26-192)
--- NOTE | 2022-04-10 04:18 | ECG_ITS ---
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 Measurements Intervals [place] Rate: 85 P: 64 NH: 139 QRS: 54 QRSD: 92 T: 60 QT: 403 QTc: 480 Interpretive Statements SINUS RHYTHM WITH OCCASIONAL VENTRICULAR PREMATURE COMPLEXES NONSPECIFIC T-WAVE ABNORMALITY Compared to ECG 04/10/2022 01:55:05 Ventricular premature complex(es) now present Sinus tachycardia no longer present T-wave abnormality still present Electronically Signed On 04-10-2022 10:53:49 CDT by Hilda Maria M.D. [id number]
--- NOTE | 2022-04-10 07:51 | PC.NURSE ---
WHILE AT DOORWAY PT IS RESTING SUPINE IN BED WITH EYES CLOSED WITH GOOD CHEST RISE AND FALL. PT IS IN NAD.
--- NOTE | 2022-04-10 07:59 | CTR_ITS ---
PROCEDURE INFORMATION: Exam: CT Chest Without Contrast; Diagnostic Exam date and time: 04/10/2022 9:04 AM Age: 56 years old Clinical indication: Fever TECHNIQUE: Imaging protocol: Diagnostic computed tomography of the chest without contrast. Radiation optimization: All CT scans at this facility use at least one of these dose optimization techniques: automated exposure control; mA and/or kV adjustment per patient size (includes targeted exams where dose is matched to clinical indication); or iterative reconstruction. COMPARISON: CR (CHEST, ) 04/10/2022 2:24 AM RADIATION DOSE METRICS: Total DLP (mGy-cm): 210.99 FINDINGS: Lungs: No focal airspace consolidation. There is a 3 mm left upper lobe pulmonary nodule on series 4, image 21. Calcified left lower lobe granuloma. Pleural spaces: Unremarkable. No pneumothorax. No pleural effusion. Heart: Heavy coronary artery calcification. Lymph nodes: Calcified mediastinal and hilar lymph nodes. Vasculature: Unremarkable. No aortic aneurysm. Spleen: Calcified splenic granulomas. Bones/joints: Unremarkable. No acute fracture. Soft tissues: Unremarkable. CT/CT chest wo con [id number] IMPRESSION: 1. No acute findings. 2. There is a 3 mm left upper lobe pulmonary nodule. For patients at low risk (minimal or absent history of smoking and of other known risk factors), no routine follow-up is indicated. For patients at high risk (history of smoking or of other known risk factors), consider optional CT Chest at 12 months. (Reference: Angie) REFERENCES: Angie Fournier et al. Guidelines for Management of Incidental Pulmonary Nodules Detected on CT Images: From the Fleischner Society 2017. Radiology. 2017;284(1):228-243.
--- NOTE | 2022-04-10 08:13 | P.HP_ITS ---
Providers/Chief Complaint Admitting Physician: Zeb Benitez MD Primary Care Provider: Reema Delgado Chief Complaint: WEAKNESS History of Present Illness Gisell Calvillo is a 56 year old female with a past medical history of insulin- dependent type 2 diabetes mellitus, hypertension, COPD, who presents to [facility] for altered mental status. During my examination, patient does not know why she is here in the hospital, she does not know why she is here, she is alert to person, to place, not to time, she follows all commands, she denies any headache, denies any blurry vision, did have one episode of nausea, no abdominal pain, did tell me that she had 1 large bowel movement yesterday, but no diarrhea, no dysuria, hematuria, no vaginal discharge, no pain complaints, no neck pain, no back pain, she does tell me that she fell yesterday night but is vague on the details and cannot exactly remember it. Denies any rashes, denies any cuts or wounds, she does show me her large right hip scar after her hip surgery but it does not really bother her. She tells me that she got the flu vaccine this year. Blood tells me that she does not get COVID vaccines. Review of Systems Const: Reports: fever(s) ENMT: Reports: throat pain Card: Denies: chest pain Resp: Denies: dyspnea Musc: Denies: neck pain or back pain Neuro: Reports: confusion; Denies: headache(s), numbness in extremities, weakness in extremities, sensory changes or dizziness Medications/Allergies Home Medications Medication Instructions Recorded Confirmed Last Taken Type aspirin 81 mg tablet,delayed 81 mg PO DAILY 03/24/22 03/24/22 Unknown History release atorvastatin 10 mg tablet 10 mg PO QPM 03/24/22 03/24/22 Unknown History citalopram 40 mg tablet 40 mg PO DAILY 03/24/22 03/24/22 Unknown History empagliflozin 25 mg tablet 25 mg PO DAILY 03/24/22 03/24/22 Unknown History (Jardiance) empagliflozin 25 mg tablet 25 mg PO DAILY #30 tabs 03/24/22 Unknown Rx (Jardiance) gabapentin 400 mg capsule 400 mg PO TID 03/24/22 03/24/22 Unknown History insulin glargine U-300 conc 300 20 unit (0.0667 mL) SUBCUT DAILY 10/19/22 Unknown Rx unit/mL (3 mL) subcutaneous pen #6 mL (Toujeo Max U-300 SoloStar) insulin glargine U-300 conc 300 20 unit SUBCUT DAILY 03/24/22 03/24/22 Unknown History unit/mL (3 mL) subcutaneous pen (Toujeo Max U-300 SoloStar) metformin 1,000 mg tablet 1,000 mg PO BID 03/24/22 03/24/22 Unknown History metformin 1,000 mg tablet 500 mg PO BID #60 tabs 03/24/22 Unknown Rx metoprolol succinate 25 mg 25 mg PO DAILY 03/24/22 03/24/22 Unknown History tablet,extended release 24 hr montelukast 10 mg tablet 10 mg PO DAILY 03/24/22 03/24/22 Unknown History Allergies Allergy/AdvReac Type Severity Reaction Status Date / Time No Known Allergies Allergy Verified 03/24/22 14:54 PFSH Acute PFSH: Medical History (Updated 04/10/22 @ 08:23 by Zeb Benitez MD) History of hypertension History of type 2 diabetes mellitus Surgical History (Updated 04/10/22 @ 08:21 by Zeb Benitez MD) History of left hip replacement Family History (Updated 04/10/22 @ 08:21 by Zeb Benitez MD) Mother CAD (coronary artery disease) Social History (Updated 04/10/22 @ 08:21 by Zeb Benitez MD) Smoking and tobacco status: current some day smoker Alcohol intake: never Vitals/I&O/Wt Last Vital Signs Temp 103.6 F H 04/10/22 01:41 Pulse 85 04/10/22 04:00 Resp 13 04/10/22 04:00 BP 105/62 04/10/22 04:00 Pulse Ox 95 04/10/22 04:00 O2 Del Method 04/10/22 02:00 04/09/22 04/10/22 04/10/22 22:59 06:59 14:59 Intake Total 1050 / 1050 Balance 1050 / 1050 Weight last 48 hrs Weight 48.081 kg Physical Exam Const: COMMON NORMALS: no acute distress EXAM LIMITATIONS: altered mental status ORIENTATION/CONSCIOUSNESS: Yes awake, Yes oriented to person and Yes oriented to place; not oriented to time HENMT: COMMON NORMALS: normocephalic HEAD & SCALP: normocephalic Eye: COMMON NORMALS: Equal, round and reactive pupils present and EOMs intact bilaterally OTHER: No nuchal rigidity Neck/C-Spine: COMMON NORMALS: no JVD Resp: COMMON NORMALS: normal respiratory effort, No retractions, No use of accessory muscles and clear to auscultation bilaterally AUSCULTATION: clear to auscultation bilaterally Cardio: COMMON NORMALS: no JVD, regular rate, regular rhythm, S1 normal heart sound present and S2 normal heart sound present RATE: regular rate RHYTHM: regular rhythm HEART SOUNDS: S1 normal heart sound present and S2 normal heart sound present GI: COMMON NORMALS: Normal to inspection, nondistended, normoactive bowel sounds present, Soft to palpation, non-tender, No hepatosplenomegaly present, no masses and no bruits PALPATION: Yes Soft to palpation and Yes No hepatosplenomegaly present Extremity: COMMON NORMALS: no pedal edema Neuro: COMMON NORMALS: CN's II-XII intact bilaterally, moves all extremities and no focal motor deficits OTHER: Alert to person, place, not to time, does follow commands Data : 04/10/22 02:00 04/10/22 02:00 Micro: Microbiology 04/10/22 02:04 Blood Culture - Preliminary Blood SPECIMEN COLLECTED 04/10/22 02:00 Blood Culture - Preliminary Blood SPECIMEN COLLECTED A&P Assessment and plan (1) Acute encephalopathy: (2) Hyponatremia: (3) Anemia: Plan Acute encephalopathy -Concerning for meningitis -Chest x-ray no focal pneumonia, will do CT of the chest -UA not convincing for UTI, however CT did show bladder wall thickening -CT of the abdomen also showed Incompletely visualized approximately 1.6 x 1.6 cm circumscribed fluid attenuation cyst or collection within the midline perineum. Differential diagnosis includes small posterior midline Bartholin cyst versus posterior urethral diverticulum versus small perineal abscess. -She has no pelvic complaints, no vaginal discharge, nothing I could palpate on physical exam -COVID-negative -Flu pending -Pro-Joseluis 2.92, CRP 199 -ESR pending -CK6 70 -WBC 9.8 -Remains encephalopathic in the emergency room, T-max 103.6 Plan -Discussed with ER provider, will obtain lumbar puncture -Work-up as above -Started on vancomycin, meropenem -Monitor mentation closely, neurochecks, aspiration precautions -Started on Decadron -Follow urine cultures, blood cultures, sputum cultures, CSF studies -HIV, acute hep, diarrhea, trichomonas -Low-dose sliding scale for diabetes, Lantus 10 units at bedtime -Hold off on anticoagulation for DVT prophylaxis as there is plans a lumbar puncture SCDs -Full code Acute on chronic hyponatremia, serum sodium 125, her serum sodium roughly a month ago was also 125, etiology unclear -We will give IV fluids monitor serum sodiums Attestations Medical Necessity Statement*: Patient requires hospitalization for acute encephalopathy, hyponatremia, anemia, inpatient, greater than 2 minutes Coding Level of Care Code Acute Vendor Management Specialist for Yocasta Ramirez Diagnoses Acute encephalopathy G93.40 Hyponatremia E87.1 Anemia D64.9
--- NOTE | 2022-04-10 08:18 | ECG_ITS ---
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 Measurements Intervals [place] Rate: 95 P: 55 SC: 173 QRS: -58 QRSD: 127 T: 11 QT: 367 QTc: 463 Interpretive Statements SINUS RHYTHM LEFT ANTERIOR FASCICULAR BLOCK [QRS AXIS <= -45, QR IN I, RS IN II] LEFT VENTRICULAR HYPERTROPHY AND ST-T CHANGE ANTEROSEPTAL MYOCARDIAL INFARCTION , PROBABLY RECENT Compared to ECG 12/04/2021 22:08:06 Left anterior fascicular block now present Left ventricular hypertrophy now present ST (T wave) deviation now present Myocardial infarct finding now present Electronically Signed On 04-10-2022 10:58:08 CDT by Hilda Maria M.D. [id number]
--- NOTE | 2022-04-10 08:28 | W.ED.FEVER ---
HPI - Fever General: Chief Complaint: Fever Stated Complaint: WEAKNESS Time Seen by Provider: 04/10/22 01:44 Source: patient and family History of Present Illness: a Context: other Treatments prior to arrival fever: none PFSH ED PFSH: Medical History (Updated 04/10/22 @ 08:23 by Zeb Benitez MD) History of hypertension History of type 2 diabetes mellitus Surgical History (Updated 04/10/22 @ 08:21 by Zeb Benitez MD) History of left hip replacement Family History (Updated 04/10/22 @ 08:21 by Zeb Benitez MD) Mother CAD (coronary artery disease) Social History (Updated 04/10/22 @ 08:21 by Zeb Benitez MD) Smoking and tobacco status: current some day smoker Alcohol intake: never Procedures Lumbar Puncture Time Out Performed: Yes Patient Position: left lateral decubitus Skin Prep: Povidone-Iodine 1% Local Anesthetic: lidocaine 1% Amount of anesthesia used (mL): 5 Spinal Needle Gauge: 20G Interspace Used: L4-L5 Fluid Initially Obtained: clear Complications: none Course Vital Signs: Vital signs: Vital Signs Temperature 103.6 F H 04/10/22 01:41 Pulse Rate 85 04/10/22 04:00 Respiratory Rate 13 04/10/22 04:00 Blood Pressure 105/62 04/10/22 04:00 Pulse Oximetry 95 04/10/22 04:00 Oxygen Delivery Me thod 04/10/22 02:00 MDM - Fever Medical Decision Making Addendum to previous note for procedure of a lumbar puncture Lab Data : 04/10/22 02:00 04/10/22 02:00 Radiology Impressions Chest X-Ray 04/10/22 01:56 IMPRESSION: No acute abnormality demonstrated. Head CT 04/10/22 01:56 IMPRESSION: Mild atrophy and chronic/remote ischemic changes without evidence of superimposed acute infarct, hemorrhage or mass-effect at this time. Abdomen/Pelvis CT 04/10/22 02:20 IMPRESSION: 1. Thickened urinary bladder suggestive of cystitis/UTI. 2. Incompletely visualized approximately 1.6 x 1.6 cm circumscribed fluid attenuation cyst or collection within the midline perineum. Differential diagnosis includes small posterior midline Bartholin cyst versus posterior urethral diverticulum versus small perineal abscess. 3. Previous hysterectomy. Laboratory Results WBC 9.8 10^3/uL (4.0-10.0) 04/10/22 02:00 RBC 3.42 10^6/uL (4.1-5.3) L 04/10/22 02:00 Hgb 9.6 g/dL (11.5-15.3) L 04/10/22 02:00 Hct 30.4 % (37.0-47.0) L 04/10/22 02:00 MCV 88.9 fl (81-99) 04/10/22 02:00 MCH 28.1 pg (28.0-34.0) 04/10/22 02:00 MCHC 31.6 g/dL (30.0-36.0) 04/10/22 02:00 RDW 13.1 % (12.1-15.1) 04/10/22 02:00 Plt Count 401 10^3/cmm (130-400) H 04/10/22 02:00 MPV 8.7 fL (7.4-10.4) 04/10/22 02:00 Neut % (Auto) 82.8 % 04/10/22 02:00 Lymph % (Auto) 8.2 % 04/10/22 02:00 [place] % (Auto) 8.3 % 04/10/22 02:00 Eos % (Auto) 0.0 % 04/10/22 02:00 Baso % (Auto) 0.3 % 04/10/22 02:00 Neut # (Auto) 8.08 10^3/uL (1.8-7.7) H 04/10/22 02:00 Lymph # (Auto) 0.8 10^3/uL (0.8-4.8) 04/10/22 02:00 [place] # (Auto) 0.8 10^3/uL (0.2-0.9) 04/10/22 02:00 Eos # (Auto) 0.0 10^3/uL (0.0-0.8) 04/10/22 02:00 Baso # (Auto) 0.0 10^3/uL (0.0-0.1) 04/10/22 02:00 Nucleated RBC % (auto) 0 % 04/10/22 02:00 Nucleated RBCs # 0.0 /100WBC 04/10/22 02:00 Sodium 125 mmol/L (136-145) L 04/10/22 02:00 Potassium 3.8 mmol/L (3.5-5.1) 04/10/22 02:00 Chloride 91 mmol/L (98-107) L 04/10/22 02:00 Carbon Dioxide 24 mmol/L (22-29) 04/10/22 02:00 Anion Gap 13.8 (5-19) 04/10/22 02:00 BUN 29 mg/dL (6-20) H 04/10/22 02:00 Creatinine 0.8 mg/dL (0.5-0.9) 04/10/22 02:00 GFR Calculation 74.2 mL/min (90-130) L 04/10/22 02:00 Glucose 253 mg/dL (65-115) H 04/10/22 02:00 POC Glucose 268 mg/dL (70-110) H 04/10/22 01:55 Calculated Osmolality 274 mOsm/kg (285-295) L 04/10/22 02:00 Lactate 0.9 mmol/L (0.5-2.2) 04/10/22 02:00 Calcium 8.1 mg/dL (8.5-10.5) L 04/10/22 02:00 Total Bilirubin 0.2 mg/dL (0.15-1.2) 04/10/22 02:00 AST 42 U/L (0-32) H 04/10/22 02:00 ALT 30 U/L (0-33) 04/10/22 02:00 Alkaline Phosphatase 114 U/L (35-105) H 04/10/22 02:00 Creatine Kinase 670 U/L (26-192) H* 04/10/22 02:00 Troponin T Baseline 20 ng/L (0-10) H 04/10/22 02:00 Troponin T 120 Minute 17.80 ng/L (0-10) H 04/10/22 04:03 Delta Troponin T -2.20 ABS# (0-10) L 04/10/22 04:03 Troponin T Hi Sens 6Hr 16.50 ng/L (0-10) H 04/10/22 07:10 Troponin T Hi Sens 6Hr Delta -3.50 ng/L (0-12) L 04/10/22 07:10 C-Reactive Protein 199.7 mg/L (0.0-4.9) H 04/10/22 02:00 Total Protein 6.6 g/dL (6.6-8.7) 04/10/22 02:00 Albumin 3.2 g/dL (3.5-5.2) L 04/10/22 02:00 Globulin 3.4 g/dL (1.3-4.6) 04/10/22 02:00 Procalcitonin 2.92 ng/mL (0-0.5) H 04/10/22 02:00 Urine Color Colorless (Yellow) 04/10/22 01:56 Urine Appearance Clear (CLEAR) 04/10/22 01:56 Urine pH 6 (5-7) 04/10/22 01:56 Ur Specific Louise 1.005 (1.005-1.030) 04/10/22 01:56 Urine Protein 1+ (Negative) H 04/10/22 01:56 Urine Glucose (UA) 4+ (Normal) H 04/10/22 01:56 Urine Ketones Negative (Negative) 04/10/22 01:56 Urine Blood 3+ (Negative) H 04/10/22 01:56 Urine Nitrate Negative (Negative) 04/10/22 01:56 Urine Bilirubin Neg (Negative) 04/10/22 01:56 Urine Urobilinogen Norm mg/dL (Negative) 04/10/22 01:56 Ur Leukocyte Esterase Trace (Negative) H 04/10/22 01:56 Urine RBC 0-4 /hpf (0-2) H 04/10/22 01:56 Urine WBC None /hpf (0-5) 04/10/22 01:56 Ur Squamous Epith Cells None /hpf (0-5) 04/10/22 01:56 Amorphous Sediment Not Reportable 04/10/22 01:56 Urine Bacteria None /hpf (NONE) 04/10/22 01:56 Ethyl Alcohol < 10 mg/dL (0-10) 04/10/22 02:00 SARS-CoV-2 Ag (Rapid) negative (Negative) 04/10/22 02:00 Discharge Plan Discharge Patient Disposition: Admitted As Inpatient Admit Provider: Zeb Benitez Clinical Impression: Fever, Confusion, Hyponatremia Condition: Stable Coding Level of Care Code ED Medical Affairs Director for Jessicag James
--- NOTE | 2022-04-10 08:31 | PC.NURSE ---
COLLECTED CSF SPECIMEN FROM DR. ROLLINS AFTER CONSENT SIGNED. PROVIDED SPECIMEN TO LAB AND CONFIRMED PT LABEL.
--- NOTE | 2022-04-10 08:41 | PC.NURSE ---
REPORT CALLED TO JW PRESTON RN.
[2022-04-10] MEDS: sodium chloride 0.9% 1,000 ML 75 ML IV ×2 (08:48→21:00)
[2022-04-10] MEDS: cefTRIAXone 1,000 MG in sodium chloride 0.9% (plus) 50 ML 100 MG IV (08:48)
[2022-04-10] MEDS: pantoprazole 40 mg SDV IVP (08:49)
[2022-04-10] MEDS: dexamethasone 10 mg/mL INJ IVP ×2 (08:49→13:58)
[2022-04-10 10:38] LABS: Estmated Average Glucose 303; Hemoglobin A1C 12.2 % (4.0-6.0)
[2022-04-10 10:40] LABS: Iron 11 ug/dL (37-145); Thyroid Stimulating Hormone 3.44 uIU/mL (0.27-4.20)
[2022-04-10 10:48] LABS: Appearance CSF CLEAR (CLEAR); Color CSF COLORLESS (COLORLESS); Cyto Order Verification No Order; Mononuclear WBC CSF % 100 % (50-90); Polynuclear WBC CSF % 0 % (0-10); Red Blood Cell CSF 0 10^3/uL (0-0); White Blood Cell CSF 1 /uL (0-5)
[2022-04-10 10:53] LABS: Reticulocyte % 1.3 % (0.5-2.0)
[2022-04-10 10:53] LABS: CSF Mononuclear # 0.001 10^3/uL (50-90); Pathology Referral Yes
[2022-04-10 10:54] LABS: HIV 1 & 2 Antibody Non-Reactive (Non-Reactiv); HIV 1 & 2 Antigen Non-Reactive (Non-Reactiv)
[2022-04-10 10:56] LABS: Erythrocyte Sedimentation Rate 45 mm/hr (0-15)
[2022-04-10 11:07] LABS: Glucose Point of Care 99 mg/dL (70-110)
[2022-04-10] MEDS: aspirin 81 mg EC Tablet PO (11:10)
[2022-04-10] MEDS: gabapentin 400 mg Capsule PO ×3 (11:10→20:37)
[2022-04-10 11:11] LABS: NT Pro B Type Natriuretic Pept 876 pg/mL (0-125)
[2022-04-10 11:13] LABS: Glucose CSF 118 mg/dL (40-70); Total Protein CSF 30 mg/dL (15-45)
[2022-04-10] MEDS: ipratropium-albuterol 3 mL Neb INHALATION ×3 (11:14→19:29)
[2022-04-10 11:18] LABS: Hepatitis A Antibody IgM Non-Reactive (Nonreactive); Hepatitis B Core IgM Non-Reactive (Nonreactive); Hepatitis B Surface Antigen Non-Reactive (Nonreactive); Hepatitis C Virus Antibody Non-Reactive (Nonreactive)
[2022-04-10] MEDS: meropenem 2,000 MG in sodium chloride 0.9% (100 ml) 100 ML 200 MG IV (11:18)
[2022-04-10 11:40] LABS: Influenza A by IFA negative (Negative); Influenza B by IFA negative (Negative)
[2022-04-10] MEDS: vancomycin 1,000 MG in sodium chloride 0.9% 250 ML 250 MG IV (11:59)
[2022-04-10 12:24] LABS: Rapid Plasma Reagin Syphilis Nonreactive (Nonreactive)
[2022-04-10 12:38] LABS: Ferritin 229 ng/mL (15-150); Iron 11 ug/dL (37-145); Percent Saturation 4.8 % (20-50); Total Iron Binding Capacity 228 mcg/dl; Unsaturated Iron Binding 217 ug/dL (112-347)
[2022-04-10 12:53] LABS: Vitamin B12 1080 pg/mL (232-1245)
[2022-04-10] MEDS: nicotine 14 mg Patch 1 PATCH TRANSDERMA (13:57)
[2022-04-10] MEDS: acyclovir 500 MG in sodium chloride 0.9% (plus) 100 ML 110 MG IV (16:10)
[2022-04-10 16:57] LABS: Glucose Point of Care 586 mg/dL (70-110)
[2022-04-10 17:00] LABS: Glucose Point of Care 498 mg/dL (70-110)
[2022-04-10 17:15] LABS: Glucose Point of Care 486 mg/dL (70-110)
[2022-04-10] MEDS: meropenem 2,000 MG in sodium chloride 0.9% (100 ml) 100 ML 100 MG IV (17:33)
[2022-04-10] MEDS: insulin lispro 100 unit/1 mL SUBCUT (17:33)
[2022-04-10 18:38] LABS: Glucose Point of Care 510 mg/dL (70-110)
[2022-04-10 18:43] LABS: Glucose Point of Care 590 mg/dL (70-110)
[2022-04-10 18:49] LABS: Anion Gap 18.2 (5-19); Blood Urea Nitrogen 23 mg/dL (6-20); Calcium 7.6 mg/dL (8.5-10.5); Carbon Dioxide 18 mmol/L (22-29); Chloride 93 mmol/L (98-107); Glomerular Filtration Rate 57.4 mL/min (90-130); Glucose 486 mg/dL (65-115); Osmolality Calculated 285 mOsm/kg (285-295); Potassium 4.2 mmol/L (3.5-5.1); Sodium 125 mmol/L (136-145)
[2022-04-10] MEDS: acetaminophen 325 mg Tablet 650 MG PO (19:20)
[2022-04-10] MEDS: insulin lispro 100 unit/1 mL 12 UNIT SUBCUT (19:56)
[2022-04-10 20:28] LABS: Glucose Point of Care 509 mg/dL (70-110)
[2022-04-10] MEDS: insulin glargine 100 units/1 mL 10 UNIT SUBCUT (20:38)
[2022-04-10 21:10] LABS: Glucose Point of Care 468 mg/dL (70-110)
[2022-04-10 22:56] LABS: Glucose Point of Care 419 mg/dL (70-110)
[2022-04-10] MEDS: insulin lispro 100 unit/1 mL 14 UNIT SUBCUT (23:30)
[2022-04-10] MEDS: acyclovir 500 MG in sodium chloride 0.9% (plus) 100 ML 100 MG IV (23:46)
[2022-04-11] VITALS (16 sets, daily range): BP systolic 99–158; BP diastolic 63–93; PULSE 86–108; RESP 14–19; TEMP 36.4–36.7; O2SAT 92–99
[2022-04-11] MEDS: meropenem 2,000 MG in sodium chloride 0.9% (100 ml) 100 ML 100 MG IV ×3 (01:54→17:26)
[2022-04-11] MEDS: vancomycin 750 MG in sodium chloride 0.9% 250 ML 250 MG IV ×2 (03:29→20:27)
[2022-04-11 05:38] LABS: Basophils % 0.1 %; Hematocrit 28.3 % (37.0-47.0); Hemoglobin 8.9 g/dL (11.5-15.3); Lymphocytes # 0.8 10^3/uL (0.8-4.8); Lymphocytes % 8.7 %; Mean Corpuscular HGB Conc 31.4 g/dL (30.0-36.0); Mean Corpuscular Hemoglobin 28.1 pg (28.0-34.0); Mean Corpuscular Volume 89.3 fl (81-99); Mean Platelet Volume 8.9 fL (7.4-10.4); Monocytes # 0.4 10^3/uL (0.2-0.9); Monocytes % 4.6 %; Neutrophils # 8.06 10^3/uL (1.8-7.7); Neutrophils % 86.2 %; Nucleated Red Blood Cells % 0 %; Platelet Count 373 10^3/cmm (130-400); Red Blood Count 3.17 10^6/uL (4.1-5.3); Red Cell Distribution Width 13.2 % (12.1-15.1); White Blood Count 9.4 10^3/uL (4.0-10.0)
[2022-04-11 06:04] LABS: Alanine Aminotransferase 32 U/L (0-33); Albumin Level 2.8 g/dL (3.5-5.2); Alkaline Phosphatase 103 U/L (35-105); Anion Gap 15.4 (5-19); Aspartate Amino Transferase 28 U/L (0-32); Blood Urea Nitrogen 19 mg/dL (6-20); C Reactive Protein 134.9 mg/L (0.0-4.9); Calcium 8.2 mg/dL (8.5-10.5); Carbon Dioxide 22 mmol/L (22-29); Chloride 102 mmol/L (98-107); Globulin 3.5 g/dL (1.3-4.6); Glomerular Filtration Rate 103.4 mL/min (90-130); Glucose 244 mg/dL (65-115); Magnesium 2.5 mg/dL (1.7-2.3); Osmolality Calculated 290 mOsm/kg (285-295); Phosphorus 2.2 mg/dL (2.5-4.5); Potassium 4.4 mmol/L (3.5-5.1); Sodium 135 mmol/L (136-145); Total Bilirubin 0.2 mg/dL (0.15-1.2); Total Protein 6.3 g/dL (6.6-8.7)
[2022-04-11 06:06] LABS: Procalcitonin 1.56 ng/mL (0-0.5)
[2022-04-11 06:36] LABS: Glucose Point of Care 347 mg/dL (70-110)
[2022-04-11] MEDS: acyclovir 500 MG in sodium chloride 0.9% (plus) 100 ML 100 MG IV ×3 (06:38→22:15)
[2022-04-11] MEDS: ipratropium-albuterol 3 mL Neb INHALATION ×4 (07:23→20:34)
[2022-04-11] MEDS: insulin lispro 100 unit/1 mL SUBCUT ×3 (08:14→17:26)
[2022-04-11] MEDS: gabapentin 400 mg Capsule PO ×3 (08:15→20:26)
[2022-04-11] MEDS: nicotine 14 mg Patch 1 PATCH TRANSDERMA (08:15)
[2022-04-11] MEDS: pantoprazole 40 mg SDV IVP (08:15)
[2022-04-11] MEDS: aspirin 81 mg EC Tablet PO (08:15)
[2022-04-11 11:50] LABS: Glucose Point of Care 391 mg/dL (70-110)
[2022-04-11] MEDS: amlodipine 10 mg Tablet PO (11:53)
[2022-04-11 13:30] LABS: Basophils % 0.1 %; Hematocrit 28.2 % (37.0-47.0); Hemoglobin 8.8 g/dL (11.5-15.3); Lymphocytes # 1.2 10^3/uL (0.8-4.8); Lymphocytes % 8.3 %; Mean Corpuscular HGB Conc 31.2 g/dL (30.0-36.0); Mean Corpuscular Hemoglobin 28.2 pg (28.0-34.0); Mean Corpuscular Volume 90.4 fl (81-99); Mean Platelet Volume 9.2 fL (7.4-10.4); Monocytes # 0.7 10^3/uL (0.2-0.9); Monocytes % 4.8 %; Neutrophils # 12.68 10^3/uL (1.8-7.7); Neutrophils % 86.3 %; Nucleated Red Blood Cells % 0 %; Platelet Count 444 10^3/cmm (130-400); Red Blood Count 3.12 10^6/uL (4.1-5.3); Red Cell Distribution Width 13.5 % (12.1-15.1); White Blood Count 14.7 10^3/uL (4.0-10.0)
--- NOTE | 2022-04-11 13:37 | PM.PN ---
Subjective Subjective: Patient was seen this morning, she is alert oriented x3, follows all commands, she has no fevers, no chills, no nausea, no vomiting, no pain complaints, denies any vaginal discharge, denies any hematuria, no dysuria, no diarrhea, no abdominal pain, no headache, blurry vision Vitals/I&O/Wt Last Vital Signs Temp 97.8 F 04/11/22 12:00 Pulse 100 04/11/22 12:00 Resp 19 H 04/11/22 12:00 BP 141/78 04/11/22 12:00 Pulse Ox 97 04/11/22 12:00 O2 Del Method 04/11/22 11:15 04/10/22 04/11/22 04/11/22 23:59 06:59 14:59 Intake Total 920 / 920 Balance 920 / 920 Weight last 48 hrs Weight 48.081 kg Weight 48.081 kg Physical Exam Const: COMMON NORMALS: no acute distress and patient oriented x3 Eye: COMMON NORMALS: Equal, round and reactive pupils present and EOMs intact bilaterally PUPIL: Yes Equal, round and reactive pupils present Neck/C-Spine: COMMON NORMALS: no lymphadenopathy and no meningeal signs Resp: COMMON NORMALS: normal respiratory effort, No retractions, No use of accessory muscles and clear to auscultation bilaterally AUSCULTATION: clear to auscultation bilaterally Cardio: COMMON NORMALS: regular rate, regular rhythm, S1 normal heart sound present and S2 normal heart sound present RATE: regular rate RHYTHM: regular rhythm HEART SOUNDS: S1 normal heart sound present and S2 normal heart sound present GI: COMMON NORMALS: Normal to inspection, nondistended, normoactive bowel sounds present, non-tender, no masses and no bruits Extremity: COMMON NORMALS: no pedal edema Neuro: COMMON NORMALS: patient oriented x3 MENINGEAL SIGNS: Yes no meningeal signs Psych: COMMON NORMALS: mental status grossly normal Data : 04/11/22 12:54 04/11/22 05:25 Micro: Microbiology 04/10/22 08:28 Gram Stain - Final Cerebrospinal Fluid CSF Culture - Preliminary 04/10/22 02:04 Blood Culture - Preliminary Blood NEGATIVE TO DATE 04/10/22 02:00 Blood Culture - Preliminary Blood NEGATIVE TO DATE 04/10/22 08:28 Cryptococcal Antigen - Final Cerebrospinal Fluid 04/10/22 10:40 Bacterial Antigens - Final Urine,Clean Catch A&P Assessment and plan (1) Acute encephalopathy: (2) Hyponatremia: (3) Anemia: (4) Iron (Fe) deficiency anemia: Plan Acute encephalopathy -In the emergency room she was encephalopathic with high-grade fevers as high as 103 -Resolved -Concerning for possible viral meningitis -CSF clear, colorless, 1 WBC, glucose 118, total protein 30, cryptococcal antigen negative, gram stain negative -Chest x-ray no focal pneumonia, CT chest no focal pneumonia -UA not convincing for UTI, however CT did show bladder wall thickening -CT of the abdomen also showed Incompletely visualized approximately 1.6 x 1.6 cm circumscribed fluid attenuation cyst or collection within the midline perineum. Differential diagnosis includes small posterior midline Bartholin cyst versus posterior urethral diverticulum versus small perineal abscess. -She has no pelvic complaints, no vaginal discharge, nothing I could palpate on physical exam -COVID-negative -Flu negative -Pro-Joseluis 1.56, CRP 134 -ESR 45 -CK6 70 -WBC 14.6 likely secondary to steroid use -Hemoglobin 8.8, has evidence of iron deficiency anemia Plan -Continue acyclovir -Started on vancomycin, meropenem -Monitor mentation closely, neurochecks, aspiration precautions -Hold Decadron -Follow urine cultures, blood cultures, sputum cultures, CSF cultures -HIV, acute hep, diarrhea, trichomonas -Continue SCDs for DVT prophylaxis, anticoagulation relatively contraindicated due to concerns for iron deficiency anemia -Full code Hyperglycemia likely secondary Decadron, Decadron has been stopped, continue home Lantus 20 units at bedtime, with high-dose sliding scale Acute on chronic hyponatremia, resolved, 135, her serum sodium roughly a month ago was also 125, etiology unclear -We will give IV fluids monitor serum sodiums Iron deficiency anemia, with low iron, ferritin elevated, monitor for Hemoccult stool Attestations Medical Necessity Statement*: Patient requires hospitalization, inpatient, greater than 2 midnights, for concerns for viral meningitis, iron deficiency anemia Coding Level of Care Code Acute 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
[2022-04-11] MEDS: sodium chloride 0.9% 1,000 ML 75 ML IV (14:23)
[2022-04-11 15:42] LABS: Creatine Phosphokinase 416 U/L (26-192)
--- NOTE | 2022-04-11 15:44 | PC.NURSE ---
Notified primary RN of critical lab result
[2022-04-11 17:11] LABS: Glucose Point of Care 308 mg/dL (70-110)
[2022-04-11] MEDS: insulin glargine 100 units/1 mL 20 UNIT SUBCUT (21:19)
--- NOTE | 2022-04-11 21:27 | PC.NURSE ---
Messaged about patient complaint of chest pain which had resolved by the time the nurse answered her call light. The patient had went to the and was walking around in her room when she experienced sternal chest pain, sharp 12/13. Vs HR 103 BP 107/68, SAT 100%. The nurse reviewed telemetry and no apparrent changes, appeared to be some artifact. Made aware and an EKG was ordered.
--- NOTE | 2022-04-11 21:29 | ECG_ITS ---
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 Measurements Intervals [place] Rate: 110 P: 48 MS: 108 QRS: 31 QRSD: 93 T: 32 QT: 331 QTc: 448 Interpretive Statements SINUS TACHYCARDIA WITH SHORT MS INTERVAL NONSPECIFIC T-WAVE ABNORMALITY ABNORMAL RHYTHM ECG Compared to ECG 04/10/2022 04:20:14 Short MS interval now present Sinus rhythm no longer present Ventricular premature complex(es) no longer present T-wave abnormality still present Electronically Signed On 04-13-2022 12:14:18 TIMBER HARVESTER OPERATOR by Hilda Maria M.D. [id number]
[2022-04-11 21:31] LABS: Glucose Point of Care 202 mg/dL (70-110)
[2022-04-12] VITALS (13 sets, daily range): BP systolic 106–142; BP diastolic 22–90; PULSE 98–116; RESP 16–18; TEMP 36.7–36.8; O2SAT 92–100
[2022-04-12] MEDS: meropenem 2,000 MG in sodium chloride 0.9% (100 ml) 100 ML 100 MG IV (00:42)
[2022-04-12 04:50] LABS: Basophils % 0.3 %; Eosinophils # 0.1 10^3/uL (0.0-0.8); Eosinophils % 0.8 %; Hematocrit 34.9 % (37.0-47.0); Hemoglobin 10.4 g/dL (11.5-15.3); Lymphocytes # 2.6 10^3/uL (0.8-4.8); Lymphocytes % 21.1 %; Mean Corpuscular HGB Conc 29.8 g/dL (30.0-36.0); Mean Corpuscular Hemoglobin 28.3 pg (28.0-34.0); Mean Corpuscular Volume 95.1 fl (81-99); Mean Platelet Volume 8.8 fL (7.4-10.4); Monocytes # 0.8 10^3/uL (0.2-0.9); Monocytes % 6.6 %; Neutrophils # 8.53 10^3/uL (1.8-7.7); Neutrophils % 70.9 %; Nucleated Red Blood Cells % 0 %; Platelet Count 427 10^3/cmm (130-400); Red Blood Count 3.67 10^6/uL (4.1-5.3); Red Cell Distribution Width 13.9 % (12.1-15.1); White Blood Count 12.1 10^3/uL (4.0-10.0)
[2022-04-12 06:09] LABS: Alanine Aminotransferase 30 U/L (0-33); Albumin Level 2.9 g/dL (3.5-5.2); Alkaline Phosphatase 96 U/L (35-105); Anion Gap 12.3 (5-19); Aspartate Amino Transferase 20 U/L (0-32); Blood Urea Nitrogen 15 mg/dL (6-20); Calcium 8.8 mg/dL (8.5-10.5); Carbon Dioxide 24 mmol/L (22-29); Chloride 107 mmol/L (98-107); Globulin 3.3 g/dL (1.3-4.6); Glomerular Filtration Rate 86.6 mL/min (90-130); Glucose 144 mg/dL (65-115); Magnesium 2.4 mg/dL (1.7-2.3); Osmolality Calculated 291 mOsm/kg (285-295); Phosphorus 1.5 mg/dL (2.5-4.5); Potassium 4.3 mmol/L (3.5-5.1); Sodium 139 mmol/L (136-145); Total Bilirubin 0.2 mg/dL (0.15-1.2); Total Protein 6.2 g/dL (6.6-8.7)
[2022-04-12 06:11] LABS: Procalcitonin 0.96 ng/mL (0-0.5)
[2022-04-12] MEDS: acyclovir 500 MG in sodium chloride 0.9% (plus) 100 ML 100 MG IV (06:16)
[2022-04-12] MEDS: sodium chloride 0.9% 1,000 ML 50 ML IV (06:18)
[2022-04-12 06:26] LABS: Glucose Point of Care 132 mg/dL (70-110)
[2022-04-12] MEDS: ipratropium-albuterol 3 mL Neb INHALATION ×3 (08:29→16:15)
[2022-04-12] MEDS: pantoprazole 40 mg SDV IVP (08:42)
[2022-04-12] MEDS: aspirin 81 mg EC Tablet PO (08:42)
[2022-04-12] MEDS: amlodipine 10 mg Tablet PO (08:42)
[2022-04-12] MEDS: gabapentin 400 mg Capsule PO ×2 (08:42→15:35)
[2022-04-12] MEDS: nicotine 14 mg Patch 1 PATCH TRANSDERMA (08:42)
--- NOTE | 2022-04-12 10:55 | PM.DCS ---
Discharge Providers Date of Admission: 04/10/22 07:21 Date of Discharge: April 12, 2022 Attending Provider at Admission: Zeb Benitez MD Attending Provider at Discharge: Zeb Benitez MD Primary Care Provider: Reema Delgado Diagnoses at Discharge Discharge Diagnosis (1) Acute encephalopathy: Status: Acute (2) Hyponatremia: Status: Acute (3) Anemia: Status: Acute (4) Iron (Fe) deficiency anemia: Status: Acute Reason for Visit Reason for Visit: WEAKNESS Hospital Course Hospital Course 56-year female who was admitted for management of febrile event and confusion. 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 I did examine the patient today she does not have any peritoneal abscess. Tiny her CT abdomen pelvis findings with Dr. Carlin he thinks these findings are benign and incidental I would give her Dr. Ascencio's follow-up appointment at the time of discharge Patient is able to walk, able to care for self, awake and alert, no signs of meningoencephalitis NIH 0 Her hemoglobin A1c is 12, I will increase the dose of long-acting insulin to 22 units instead of 20 she can continue her Jardiance and metformin Physical Exam Narrative: NIH 0 Pleasant and cooperative No active skin rash Euvolemic S1, S2 Abdomen soft Currently on room air Discharge Data Studies Completed and Pending Completed Studies During Hospitalization Category Date Time Status CT abdomen pelvis w con* [id number] Urgent Cat Scan 04/10/22 02:[address] chest wo con [id number] Stat Cat Scan 04/10/22 07:[address] head wo con* [id number] Stat Cat Scan 04/10/22 01:56 Completed XR chest 1V portable [id number] Stat Exams 04/10/22 01:56 Completed Pending at discharge Category Date Time Status Adenosine CSF [Adenosine Deaminase CSF] Routine Lab 04/10/22 08:28 Received Aspergillus AG,EIA,Serum Routine Lab 04/10/22 09:50 Received Bacterial Antigen Stat Lab 04/10/22 10:40 Results Blood Culture Stat Lab 04/10/22 02:04 Results C Reactive Protein AM LABS Lab 04/13/22 04:00 Ordered CSF Culture & Gram Stain Stat Lab 04/10/22 08:28 Results Coccidioides AB CF Serum Routine Lab 04/10/22 09:50 Received Complete Blood Count w/Auto AM LABS Lab 04/13/22 04:00 Ordered Comprehensive Metabolic Panel AM LABS Lab 04/13/22 04:00 Ordered Cryptococcal Antigen w/ Reflex Stat Lab 04/10/22 09:50 Received Herpes Simplex 1&2 IgG AB Routine Lab 04/10/22 09:50 Received Herpes Simplex Virus DNA Stat Lab 04/10/22 09:50 Received Lymes Disease Antibodies CSF Stat Lab 04/10/22 08:28 Received Magnesium AM LABS Lab 04/13/22 04:00 Ordered Occult Blood Stool [Immunochemical Fecal OCB] Routine Lab 04/10/22 09:25 Uncollected Phosphorus AM LABS Lab 04/13/22 04:00 Ordered Procalcitonin AM LABS Lab 04/13/22 04:00 Ordered Respiratory Panel 2 Routine Lab 04/10/22 14:53 Ordered Sputum Culture and Gram Stain Stat Lab 04/10/22 07:59 Uncollected [place] Enceph.Virus IFA CSF Stat Lab 04/10/22 08:28 Received Tick Panel Stat Lab 04/10/22 09:50 Received Urine Culture Stat Lab 04/10/22 10:40 Results VDRL on CSF Stat Lab 04/10/22 08:28 Received Vancomycin Trough Timed Lab 04/13/22 08:00 Ordered West Nile Virus AB Panel,CSF Stat Lab 04/10/22 08:28 Received Radiology Impressions Chest X-Ray 04/10/22 01:56 IMPRESSION: No acute abnormality demonstrated. Head CT 04/10/22 01:56 IMPRESSION: Mild atrophy and chronic/remote ischemic changes without evidence of superimposed acute infarct, hemorrhage or mass-effect at this time. Abdomen/Pelvis CT 04/10/22 02:20 IMPRESSION: 1. Thickened urinary bladder suggestive of cystitis/UTI. 2. Incompletely visualized approximately 1.6 x 1.6 cm circumscribed fluid attenuation cyst or collection within the midline perineum. Differential diagnosis includes small posterior midline Bartholin cyst versus posterior urethral diverticulum versus small perineal abscess. 3. Previous hysterectomy. Chest CT 04/10/22 07:59 IMPRESSION: 1. No acute findings. 2. There is a 3 mm left upper lobe pulmonary nodule. For patients at low risk (minimal or absent history of smoking and of other known risk factors), no routine follow-up is indicated. For patients at high risk (history of smoking or of other known risk factors), consider optional CT Chest at 12 months. (Reference: Angie) REFERENCES: Angie Fournier, et al. Guidelines for Management of Incidental Pulmonary Nodules Detected on CT Images: From the Fleischner Society 2017. Radiology. 2017;284(1):228-243. Laboratory Results WBC 12.1 10^3/uL (4.0-10.0) H 04/12/22 04:31 RBC 3.67 10^6/uL (4.1-5.3) L 04/12/22 04:31 Hgb 10.4 g/dL (11.5-15.3) L 04/12/22 04:31 Hct 34.9 % (37.0-47.0) L 04/12/22 04:31 MCV 95.1 fl (81-99) D 04/12/22 04:31 MCH 28.3 pg (28.0-34.0) 04/12/22 04:31 MCHC 29.8 g/dL (30.0-36.0) L 04/12/22 04:31 RDW 13.9 % (12.1-15.1) 04/12/22 04:31 Plt Count 427 10^3/cmm (130-400) H 04/12/22 04:31 MPV 8.8 fL (7.4-10.4) 04/12/22 04:31 Neut % (Auto) 70.9 % 04/12/22 04:31 Lymph % (Auto) 21.1 % 04/12/22 04:31 Harlan % (Auto) 6.6 % 04/12/22 04:31 Eos % (Auto) 0.8 % 04/12/22 04:31 Baso % (Auto) 0.3 % 04/12/22 04:31 Reticulocyte % (Auto) 1.3 % (0.5-2.0) 04/10/22 09:50 Neut # (Auto) 8.53 10^3/uL (1.8-7.7) H 04/12/22 04:31 Lymph # (Auto) 2.6 10^3/uL (0.8-4.8) 04/12/22 04:31 Harlan # (Auto) 0.8 10^3/uL (0.2-0.9) 04/12/22 04:31 Eos # (Auto) 0.1 10^3/uL (0.0-0.8) 04/12/22 04:31 Baso # (Auto) 0.0 10^3/uL (0.0-0.1) 04/12/22 04:31 Nucleated RBC % (auto) 0 % 04/12/22 04:31 Nucleated RBCs # 0.0 /100WBC 04/12/22 04:31 ESR 45 mm/hr (0-15) H 04/10/22 09:50 Sodium 139 mmol/L (136-145) 04/12/22 05:15 Potassium 4.3 mmol/L (3.5-5.1) 04/12/22 05:15 Chloride 107 mmol/L (98-107) 04/12/22 05:15 Carbon Dioxide 24 mmol/L (22-29) 04/12/22 05:15 Anion Gap 12.3 (5-19) 04/12/22 05:15 BUN 15 mg/dL (6-20) 04/12/22 05:15 Creatinine 0.7 mg/dL (0.5-0.9) 04/12/22 05:15 GFR Calculation 86.6 mL/min (90-130) L 04/12/22 05:15 Glucose 144 mg/dL (65-115) H 04/12/22 05:15 POC Glucose 132 mg/dL (70-110) H 04/12/22 06:07 Estimat Average Glucose 303 04/10/22 09:50 Hemoglobin A1c 12.2 % (4.0-6.0) H 04/10/22 09:50 Calculated Osmolality 291 mOsm/kg (285-295) 04/12/22 05:15 Lactic Acid 1.0 mmol/L (0.5-2.2) 04/10/22 09:50 Lactate 0.9 mmol/L (0.5-2.2) 04/10/22 02:00 Calcium 8.8 mg/dL (8.5-10.5) 04/12/22 05:15 Phosphorus 1.5 mg/dL (2.5-4.5) L 04/12/22 05:15 Magnesium 2.4 mg/dL (1.7-2.3) H 04/12/22 05:15 Iron 11 ug/dL (37-145) L 04/10/22 09:50 Iron 11 ug/dL (37-145) L 04/10/22 09:50 TIBC 228 mcg/dl 04/10/22 09:50 % Saturation 4.8 % (20-50) L 04/10/22 09:50 Unsat Iron Binding 217 ug/dL (112-347) 04/10/22 09:50 Ferritin 229 ng/mL (15-150) H 04/10/22 09:50 Total Bilirubin 0.2 mg/dL (0.15-1.2) 04/12/22 05:15 AST 20 U/L (0-32) 04/12/22 05:15 ALT 30 U/L (0-33) 04/12/22 05:15 Alkaline Phosphatase 96 U/L (35-105) 04/12/22 05:15 Creatine Kinase 416 U/L (26-192) H* 04/11/22 05:25 Troponin T Baseline 20 ng/L (0-10) H 04/10/22 02:00 Troponin T 120 Minute 17.80 ng/L (0-10) H 04/10/22 04:03 Delta Troponin T -2.20 ABS# (0-10) L 04/10/22 04:03 Troponin T Hi Sens 6Hr 16.50 ng/L (0-10) H 04/10/22 07:10 Troponin T Hi Sens 6Hr Delta -3.50 ng/L (0-12) L 04/10/22 07:10 C-Reactive Protein 63.0 mg/L (0.0-4.9) H 04/12/22 05:15 NT-Pro-B Natriuret Pep 876 pg/mL (0-125) H 04/10/22 09:50 Total Protein 6.2 g/dL (6.6-8.7) L 04/12/22 05:15 Albumin 2.9 g/dL (3.5-5.2) L 04/12/22 05:15 Globulin 3.3 g/dL (1.3-4.6) 04/12/22 05:15 Vitamin B12 1080 pg/mL (232-1245) 04/10/22 09:50 Folate 15.0 ng/mL (4.8-37.3) 04/10/22 09:50 Procalcitonin 0.96 ng/mL (0-0.5) H 04/12/22 05:15 TSH 3.44 uIU/mL (0.27-4.20) 04/10/22 09:50 Urine Color Colorless (Yellow) 04/10/22 01:56 Urine Appearance Clear (CLEAR) 04/10/22 01:56 Urine pH 6 (5-7) 04/10/22 01:56 Ur Specific Chancellor 1.005 (1.005-1.030) 04/10/22 01:56 Urine Protein 1+ (Negative) H 04/10/22 01:56 Urine Glucose (UA) 4+ (Normal) H 04/10/22 01:56 Urine Ketones Negative (Negative) 04/10/22 01:56 Urine Blood 3+ (Negative) H 04/10/22 01:56 Urine Nitrate Negative (Negative) 04/10/22 01:56 Urine Bilirubin Neg (Negative) 04/10/22 01:56 Urine Urobilinogen Norm mg/dL (Negative) 04/10/22 01:56 Ur Leukocyte Esterase Trace (Negative) H 04/10/22 01:56 Urine RBC 0-4 /hpf (0-2) H 04/10/22 01:56 Urine WBC None /hpf (0-5) 04/10/22 01:56 Ur Squamous Epith Cells None /hpf (0-5) 04/10/22 01:56 Amorphous Sediment Not Reportable 04/10/22 01:56 Urine Bacteria None /hpf (NONE) 04/10/22 01:56 CSF Appearance Clear (CLEAR) 04/10/22 08:28 CSF Color Colorless (COLORLESS) 04/10/22 08:28 CSF Specific Chancellor 1.010 04/10/22 08:28 CSF WBC 1 /uL (0-5) 04/10/22 08:28 CSF RBC 0 10^3/uL (0-0) 04/10/22 08:28 CSF Mononuclear # Auto 0.001 10^3/uL (50-90) L 04/10/22 08:28 CSF Mononuclear WBCs % 100 % (50-90) H 04/10/22 08:28 CSF Polynuclear WBCs # 0.000 10^3/uL (0-10) 04/10/22 08:28 CSF Polynuclear WBCs % 0 % (0-10) 04/10/22 08:28 CSF Diff Comment Yes 04/10/22 08:28 CSF Glucose 118 mg/dL (40-70) H 04/10/22 08:28 CSF Total Protein 30 mg/dL (15-45) 04/10/22 08:28 Ethyl Alcohol < 10 mg/dL (0-10) 04/10/22 02:00 RPR Nonreactive (Nonreactive) 04/10/22 09:50 Hepatitis A IgM Ab Non-reactive (Nonreactive) 04/10/22 09:50 Hep Bs Antigen Non-reactive (Nonreactive) 04/10/22 09:50 Hep B Core IgM Ab Non-reactive (Nonreactive) 04/10/22 09:50 Hepatitis C Antibody Non-reactive (Nonreactive) 04/10/22 09:50 HIV 1&2 Ab & HIV 1 Ag Non-reactive (Non-Reactiv) 04/10/22 09:50 HIV 1&2 Antibody Non-reactive (Non-Reactiv) 04/10/22 09:50 Influenza Type A Ag negative (Negative) 04/10/22 10:41 Influenza Type B Ag negative (Negative) 04/10/22 10:41 SARS-CoV-2 Ag (Rapid) negative (Negative) 04/10/22 02:00 Vitals Last Vital Signs Temp 98.1 F 04/12/22 07:38 Pulse 108 H 04/12/22 08:38 Resp 18 04/12/22 08:30 BP 117/74 04/12/22 07:38 Pulse Ox 96 04/12/22 08:30 O2 Del Method 04/12/22 08:30 Discharge Plan Discharge Patient Disposition: Home Condition: Stable Prescriptions: New cefpodoxime 200 mg tablet 200 mg PO BID Qty: 20 0RF Rx Instructions: must administer with a meal/food doxycycline hyclate 100 mg tablet 100 mg PO BID 10 Days Qty: 20 0RF Continued citalopram 40 mg tablet 40 mg PO DAILY atorvastatin 10 mg tablet 10 mg PO QPM gabapentin 400 mg capsule 400 mg PO TID aspirin 81 mg Tablet,Delayed Release (Dr/Ec) 81 mg PO DAILY metformin 1,000 mg tablet 1,000 mg PO BID montelukast 10 mg tablet 10 mg PO DAILY Jardiance 25 mg tablet 25 mg PO DAILY Qty: 30 0RF lisinopril 10 mg Tablet 10 mg PO DAILY Changed Levemir FlexTouch U-100 Insuln 100 unit/mL (3 mL) insulin pen 22 unit SUBCUT BEDTIME Qty: 15 0RF Discharge Orders: Discharge Order (Routine); Ordered 04/12/22 Ordered By: Daryl Howard Referrals: Reema Delgado FNP [Primary Care Provider] - 04/26/22 2:30 pm (Appointment with Catracho Childress MD) Jignesh Ascencio MD [Physician] - 4-7 days (DR ASCENCIO WILL CALL WITH APPOINTMENT) Discharge Activity: Increase activity as tolerated Patient Instructions: Doxycycline (By mouth), Cefpodoxime Proxetil (By mouth), Anemia (GEN), Opioid Safety Discharge Attestations Time Spent in Discharge Care*: less than 30 min Quality Metrics Clinical Quality Measures [ No reported AMI, CVA or VTE this stay] Coding Level of Care Code Acute Chg FW DC note Diagnoses Acute encephalopathy G93.40 Hyponatremia E87.1 Anemia D64.9 Iron (Fe) deficiency anemia D50.9
[2022-04-12] MEDS: meropenem 2,000 MG in sodium chloride 0.9% (100 ml) 100 ML 200 MG IV (11:11)
[2022-04-12 11:31] LABS: Glucose Point of Care 378 mg/dL (70-110)
[2022-04-12] MEDS: insulin lispro 100 unit/1 mL SUBCUT ×2 (11:46→17:12)
--- NOTE | 2022-04-12 12:11 | PC.CHAP ---
Pastoral Care Encounter/Spiritual Assessment Type of Contact [] Declined boarding house cook visit [] Patient/Family/Request visit [] Outpatient visit [] Follow-up visit [] Physician referral [] Code/Alert [x] Routine visit [] Staff referral [] Actively dying [] Patient sleeping [] Family support [] [] Out of room [] Palliative care [] [x] Receiving care in room [] Pre-surgical visit [] Trauma [] Long length of stay [] ICU visit [] Other: Relational/Emotional Strength [] Patient feels connected with others/family/visitors/staff [] Distress [] Loneliness/isolation [] Abandonment Spirituality of Patient [] Person of Naa [] Attends Amish of their Naa [] Believes in Prayer [] Reads Bible or Rastafari materials [] There are Spiritual issues to be addressed Synchro Assembler Interventions [] Prayer [] Active listening [] Non-anxious presence [] Spiritual/emotional support [] Crisis/trauma care [] Spiritual counseling [] Bereavement support [] Provided bereavement packet [] Provided Bible/devotional materials [] Provided toy/stuffed animal, coloring book to patient or family member [] Provided Communion [] Anointing/[place]man [] Salvation [] Completed spiritual assessment [] Other: Impact on Illness or Injury [] Angry [] Fearful [] Anxious [] Often cries [] Exhaustion [] Unable to work [] Unable to attend scientologist [] Unable to walk/stand [] Unable to read [] Unable to drive [] Unable to eat/drink [] Unable to sleep [] Unable to be with family [] Patient intubated [] Other: Summary Time spent with patient
[2022-04-12 16:41] LABS: Glucose Point of Care 185 mg/dL (70-110)
[2022-04-13 11:53] LABS: HSV 2 IGG Type Specific AB <0.90 index
[2022-04-13 14:18] LABS: Lyme AB Screen <0.90 index
[2022-04-14 20:09] LABS: Adenosine Deaminase CSF 0.5 U/L (<7.0)
[2022-04-16 17:17] LABS: Aspergillus AG,EIA,Serum NOT DETECTED; Aspergillus Galactomannan Inde <0.50
[2022-04-17 00:33] LABS: VDRL on CSF NON-REACTIVE
[2022-04-17 16:12] LABS: HSV 1 DNA NOT DETECTED; HSV 2 DNA NOT DETECTED; HSV Source SERUM
[2022-04-17 18:48] LABS: West Nile Virus AB (IGG) <1.30 index; West Nile Virus AB (IGM) <0.90 index
[2022-04-18 17:12] LABS: St. Louis Enceph.Virus IGG CSF <1:1; St. Louis Enceph.Virus IGM CSF <1:1
[2022-04-18 17:17] LABS: Cryptococcal Source SERUM
[2022-04-20 17:38] LABS: RMSF IGG NOT DETECTED; RMSF IGM NOT DETECTED
[2022-04-21 17:03] LABS: E. Chaffeensis AB IGG <1:64; E. Chaffeensis AB IGM <1:20
[2022-04-21 18:18] LABS: Coccidioides AB CF Serum <1:2
[2022-04-21 19:52] LABS: Lyme Disease AB (IGG),IBL NO BANDS DETECTED; Lyme Disease AB (IGM), IBL NO BANDS DETECTED
== END 2022-04-12 19:00 | disposition home or self-care (01) | DRG 75 ==
LOC: ER 07:51 → MEDSURG 08:06
PROVIDERS: Emergency Medicine; Admitting Provider Family Medicine; Emergency Provider Emergency Medicine; PCP Nurse Practitioner Family; Visit Provider Family Medicine
DX: A87.9 Viral meningitis, unspecified (principal); E87.1 Hypo-osmolality and hyponatremia; G93.40 Encephalopathy, unspecified; E11.65 Type 2 diabetes mellitus with hyperglycemia; T38.0X5A Adverse effect of glucocorticoids and synthetic analogues, initial encounter; I10 Essential (primary) hypertension; J44.9 Chronic obstructive pulmonary disease, unspecified; Z96.642 Presence of left artificial hip joint; F17.200 Nicotine dependence, unspecified, uncomplicated; D50.9 Iron deficiency anemia, unspecified; E86.0 Dehydration; N30.90 Cystitis, unspecified without hematuria; N75.0 Cyst of Bartholin's gland; N36.1 Urethral diverticulum; Z79.82 Long term (current) use of aspirin; Z79.84 Long term (current) use of oral hypoglycemic drugs
CPT/HCPCS: 36415; 36416; 62270; 70450; 71045; 71250; 74177; 80048; 80053; 80074; 80307; 80503; 81001; 82550; 82607; 82728; 82746; 82945; 82962; 83036; 83540; 83550; 83605; 83735; 83880; 84100; 84145; 84157; 84311; 84315; 84443; 84484; 85025; 85045; 85651; 86140; 86403; 86592; 86617; 86618; 86635; 86653; 86666; 86695; 86696; 86757; 86788; 86789; 87040; 87070; 87075; 87086; 87205; 87305; 87327; 87426; 87491; 87530; 87591; 87661; 87804; 87806; 89050; 93005; 94640; 96365; 96372; 96375; 99285; C9113; J0133; J0696; J1100; J1815; J2185; J2543; J3370; J7030; J7050; Q9967

== ENCOUNTER → 2022-04-28 10:10 | Outpatient (BNVA) | payer OTHER, MEDICAID, SELFPAY | PROVIDERS: PCP Nurse Practitioner Family; Visit Provider Urology | DX: N90.89 Other specified noninflammatory disorders of vulva and perineum (principal); N36.9 Urethral disorder, unspecified; R19.00 Intra-abdominal and pelvic swelling, mass and lump, unspecified site | CPT/HCPCS: 81003 ==

== ENCOUNTER 2022-05-16 17:31 | Emergency (ER) | payer OTHER, MEDICAID, SELFPAY ==
[2022-05-16 17:35] VITALS: BP 142/88; PULSE 102; RESP 17; TEMP 36.7; O2SAT 95; BMI 20.7
[2022-05-16 17:40] VITALS: BP 136/91; PULSE 100; O2SAT 93
--- NOTE | 2022-05-16 17:47 | XRR_ITS ---
PROCEDURE INFORMATION: Exam: XR Chest Exam date and time: 05/16/2022 5:55 PM Age: 56 years old Clinical indication: Dyspnea TECHNIQUE: Imaging protocol: Radiologic exam of the chest. Views: 1 view. COMPARISON: CT chest con [id number] 04/10/2022 9:04 AM FINDINGS: Lungs: Incidental benign calcified granuloma the left lung base. Pleural spaces: Unremarkable. No pleural effusion. No pneumothorax. Heart/Mediastinum: There are calcified mediastinal and perihilar lymph nodes consistent with prior granulomatous exposure. Bones/joints: Unremarkable. XR/XR chest 1V portable [id number] IMPRESSION: No evidence for acute cardiopulmonary disease.
--- NOTE | 2022-05-16 17:47 | ECG_ITS ---
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 Measurements Intervals [place] Rate: 101 P: 62 OR: 126 QRS: 33 QRSD: 88 T: 46 QT: 343 QTc: 445 Interpretive Statements SINUS TACHYCARDIA NONSPECIFIC T-WAVE ABNORMALITY ABNORMAL RHYTHM ECG Compared to ECG 04/11/2022 21:47:31 Short OR interval no longer present T-wave abnormality still present Electronically Signed On 05-17-2022 14:57:23 TRIMMER AND BORER MACHINE OPERATOR by Carson Lopez M.D. [id number]
--- NOTE | 2022-05-16 18:13 | W.ED.SOB ---
HPI - SOB/Dyspnea General: Chief Complaint: Shortness of Breath/Dyspnea Stated Complaint: SOB Time Seen by Provider: 05/16/22 17:36 Source: patient Mode of arrival: EMS Limitations: no limitations History of Present Illness: HPI Narrative: See nursing assessment. Patient with complaints of shortness of breath started 2 days ago. She had nonproductive cough and occasional slight fever up to 99 degrees. She states she does smoke but denies any previous history of asthma or COPD. She does have insulin-dependent diabetes mellitus. She denies any heart problems. Patient states she has occasional pleuritic chest pain. Patient also reports that she has been vaccinated for influenza. She denies any vaccination for COVID. EMS gave patient nebulizer prior to arrival. She states she feels better. She denies any allergies to medications. Associated symptoms: Reports chest congestion and fever(s) (Occasional mild); Deny abdominal pain, chest pain, hemoptysis, nausea, palpitations or vomiting Review of Systems Const: Reports: fever(s) (Occasional mild); Denies: chills Eyes: Denies: change in vision ENMT: Denies: throat pain Card: Denies: chest pain or palpitations Resp: Reports: dyspnea, non-productive cough, pain on inspiration and chest congestion; Denies: wheezing, stridor or hemoptysis GI: Denies: abdominal pain, nausea or vomiting : Denies: flank pain Musc: Denies: neck pain or back pain Skin/Breast: Denies: rash or pruritus Neuro: Denies: headache(s) or numbness in extremities Psych: Denies: anxiety Bogdan/Lymph: Denies: enlarged lymph nodes PFSH ED PFSH: Medical History Acute encephalopathy Anemia Confusion Fever History of hypertension History of type 2 diabetes mellitus Hyponatremia Iron (Fe) deficiency anemia Pelvic mass Surgical History History of left hip replacement Family History Mother CAD (coronary artery disease) Social History Smoking and tobacco status: current some day smoker Alcohol intake: never Physical Exam Const: COMMON NORMALS: no acute distress, patient oriented x3, no limitations and well nourished GENERAL APPEARANCE: cooperative HENMT: COMMON NORMALS: normocephalic and atraumatic HEAD & SCALP: normocephalic and atraumatic FACE & SINUS: normal facial exam Eye: COMMON NORMALS: EOMs intact bilaterally Neck/C-Spine: COMMON NORMALS: full ROM, no lymphadenopathy, supple and no meningeal signs GENERAL: Yes normal visual inspection Lymph: LYMPHATIC: no lymphadenopathy noted Chest: COMMONS NORMALS: normal inspection of the chest and normal palpation of entire chest wall CHEST: No Ecchymosis present and No rash Resp: COMMON NORMALS: normal respiratory effort and No retractions EFFORT & INSPECTION: No respiratory distress OTHER: Mild crackles in the left base. Cardio: COMMON NORMALS: regular rate, regular rhythm and Peripheral pulses 2+ throughout JUGULAR VENOUS DISTENTION: no JVD RATE: regular rate RHYTHM: regular rhythm PERIPHERAL PULSES: Peripheral pulses 2+ throughout GI: COMMON NORMALS: Normal to inspection, nondistended, normoactive bowel sounds present and non-tender : COMMON NORMALS: Yes no CVA tenderness BLADDER/KIDNEY EXAM: Yes no CVA tenderness Back/Pelvis: COMMON NORMALS: no CVA tenderness Extremity: COMMON NORMALS: normal to inspection, full ROM and capillary refill normal Neuro: COMMON NORMALS: patient oriented x3, CN's II-XII intact bilaterally, no focal motor deficits and no sensory deficits noted MENINGEAL SIGNS: Yes no meningeal signs Psych: COMMON NORMALS: mental status grossly normal and Normal thought process present THOUGHT PROCESS: Normal thought process present Skin: COMMON NORMALS: no rashes or lesions noted and no wounds GENERAL SKIN EXAM: no rashes or lesions noted Course Vital Signs: Vital signs: Vital Signs Temperature 98.1 F 05/16/22 17:35 Pulse Rate 103 H 05/16/22 20:45 Respiratory Rate 16 05/16/22 20:45 Blood Pressure 175/103 05/16/22 20:45 Pulse Oximetry 98 05/16/22 20:45 Oxygen Delivery Me thod 05/16/22 20:45 MDM - SOB/Dyspnea Medical Decision Making Viral illness versus COPD exacerbation versus pneumonia. Family told nurse patient has complaints of constipation. Patient states she does not tolerate mag citrate. She has MiraLAX at home. Lab Data 05/16/22 17:40 12/11/22 17:40 Labs/Radiology: Radiology Impressions Chest X-Ray 05/16/22 17:47 IMPRESSION: No evidence for acute cardiopulmonary disease. Laboratory Results WBC 6.4 10^3/uL (4.0-10.0) 05/16/22 17:40 RBC 3.99 10^6/uL (4.1-5.3) L 05/16/22 17:40 Hgb 11.2 g/dL (11.5-15.3) L 05/16/22 17:40 Hct 35.7 % (37.0-47.0) L 05/16/22 17:40 MCV 89.5 fl (81-99) 05/16/22 17:40 MCH 28.1 pg (28.0-34.0) 05/16/22 17:40 MCHC 31.4 g/dL (30.0-36.0) 05/16/22 17:40 RDW 14.3 % (12.1-15.1) 05/16/22 17:40 Plt Count 338 10^3/cmm (130-400) 05/16/22 17:40 MPV 9.4 fL (7.4-10.4) 05/16/22 17:40 Neut % (Auto) 59.7 % 05/16/22 17:40 Lymph % (Auto) 26.1 % 05/16/22 17:40 [place] % (Auto) 12.5 % 05/16/22 17:40 Eos % (Auto) 0.9 % 05/16/22 17:40 Baso % (Auto) 0.6 % 05/16/22 17:40 Neut # (Auto) 3.82 10^3/uL (1.8-7.7) 05/16/22 17:40 Lymph # (Auto) 1.7 10^3/uL (0.8-4.8) 05/16/22 17:40 [place] # (Auto) 0.8 10^3/uL (0.2-0.9) 05/16/22 17:40 Eos # (Auto) 0.1 10^3/uL (0.0-0.8) 05/16/22 17:40 Baso # (Auto) 0.0 10^3/uL (0.0-0.1) 05/16/22 17:40 Nucleated RBC % (auto) 0 % 05/16/22 17:40 Nucleated RBCs # 0.0 /100WBC 05/16/22 17:40 Sodium 126 mmol/L (136-145) L 05/16/22 17:40 Potassium 4.4 mmol/L (3.5-5.1) 05/16/22 17:40 Chloride 93 mmol/L (98-107) L 05/16/22 17:40 Carbon Dioxide 24 mmol/L (22-29) 05/16/22 17:40 Anion Gap 13.4 (5-19) 05/16/22 17:40 BUN 20 mg/dL (6-20) 05/16/22 17:40 Creatinine 0.6 mg/dL (0.5-0.9) 05/16/22 17:40 GFR Calculation 103.4 mL/min (90-130) 05/16/22 17:40 Glucose 190 mg/dL (65-115) H 05/16/22 17:40 Calculated Osmolality 270 mOsm/kg (285-295) L 05/16/22 17:40 Calcium 9.1 mg/dL (8.5-10.5) 05/16/22 17:40 Troponin T Baseline 20 ng/L (0-10) H 05/16/22 17:40 Troponin T 120 Minute 17.07 ng/L (0-10) H 05/16/22 20:25 Delta Troponin T -2.93 ABS# (0-10) L 05/16/22 20:25 NT-Pro-B Natriuret Pep 163 pg/mL (0-125) H 05/16/22 17:40 Influenza Type A Ag negative (Negative) 05/16/22 18:00 Influenza Type B Ag negative (Negative) 05/16/22 18:00 SARS-CoV-2 Ag (Rapid) negative (Negative) 05/16/22 18:00 Imaging Data CXR: My impression: Nothing acute. Patient has a small calcified granuloma left lower lobe of the lung. No infiltrates or effusions or pneumothorax. Radiologist's impression: PROCEDURE INFORMATION: Exam: XR Chest Exam date and time: 05/16/2022 5:55 PM Age: 56 years old Clinical indication: Dyspnea TECHNIQUE: Imaging protocol: Radiologic exam of the chest. Views: 1 view. COMPARISON: CT chest wo con [id number] 04/10/2022 9:04 AM FINDINGS: Lungs: Incidental benign calcified granuloma the left lung base. Pleural spaces: Unremarkable. No pleural effusion. No pneumothorax. Heart/Mediastinum: There are calcified mediastinal and perihilar lymph nodes consistent with prior granulomatous exposure. Bones/joints: Unremarkable. XR/XR chest 1V portable [id number] IMPRESSION: No evidence for acute cardiopulmonary disease. ? Dictated By: Emerald Aviles MD Signed By: Emerald Aviles MD Signed Date/Time: 05/16/22 1834 EKG Data EKG 1: I personally reviewed and interpreted this EKG as follows: EKG Interpretation Date: 05/16/22 EKG interpretation time: 18:25 Interpretation: Impression sinus tachycardia with a heart rate of 101. Mild right atrial enlargement. Normal SC interval, normal QT interval, normal ST segment. Normal axis. Normal QRS. Discharge Plan Discharge Patient Disposition: Home Clinical Impression: Shortness of breath, Acute exacerbation of chronic obstructive airways disease, Constipation due to slow transit Condition: Stable Prescriptions: New ProAir HFA 90 mcg/actuation HFA aerosol inhaler 2 inh inhalation Q6H PRN (Reason: shortness of breath or wheezing) Qty: 8.5 2RF Rx Instructions: prn shortness of breath or wheezing prednisone 20 mg tablet 20 mg PO DAILY 5 Days Qty: 5 1RF Rx Instructions: for inflammation Senokot Extra Strength 17.2 mg tablet 17.2 mg PO BID PRN (Reason: constipation) Qty: 14 1RF Fleet Mineral Oil Enema 118 ml [place] DAILY PRN (Reason: constipation) Qty: 133 3RF Rx Instructions: discard any unused portion No Action citalopram 40 mg tablet 40 mg PO DAILY atorvastatin 10 mg tablet 10 mg PO QPM gabapentin 400 mg capsule 400 mg PO TID aspirin 81 mg Tablet,Delayed Release (Dr/Ec) 81 mg PO DAILY metformin 1,000 mg tablet 1,000 mg PO BID montelukast 10 mg tablet 10 mg PO DAILY Jardiance 25 mg tablet 25 mg PO DAILY Qty: 30 0RF lisinopril 10 mg Tablet 10 mg PO DAILY cefpodoxime 200 mg tablet 200 mg PO BID Qty: 20 0RF Rx Instructions: must administer with a meal/food Levemir FlexTouch U-100 Insuln 100 unit/mL (3 mL) insulin pen 22 unit SUBCUT BEDTIME Qty: 15 0RF Discharge Orders: Discharge ED (Routine); Ordered 05/16/22 Ordered By: Bora Yadav Referrals: Reema Delgado CAPITAL EQUIPMENT SPECIALIST [Primary Care Provider] - 1-3 days (For recheck) Discharge Activity: Resume usual activity Patient Instructions: Constipation (ED), High Fiber Diet (ED), COPD (Chronic Obstructive Pulmonary Disease) (ED), Fleet Enema (ED) Activity Restrictions/Additional Instructions: Drink plenty fluids. May take Senokot-S twice a day for constipation. Continue MiraLAX twice a day for constipation. May take fleets enemas as needed for constipation. Use albuterol inhaler 1 or 2 puffs every 4-6 hours as needed for shortness of breath or wheeze. Take prednisone daily for the next 5 days. Follow-up with family doctor this week for recheck. Avoid any tobacco use. Coding Level of Care Code ED Customer Service Correspondence Clerk for Chg Fwd History Comprehensive Exam Comprehensive Medical Decision Making Moderate Complexity
[2022-05-16 18:23] LABS: Influenza A by IFA negative (Negative); Influenza B by IFA negative (Negative); SARS Covid-2 Antigen negative (Negative)
[2022-05-16 18:44] LABS: Basophils % 0.6 %; Eosinophils # 0.1 10^3/uL (0.0-0.8); Eosinophils % 0.9 %; Hematocrit 35.7 % (37.0-47.0); Hemoglobin 11.2 g/dL (11.5-15.3); Lymphocytes # 1.7 10^3/uL (0.8-4.8); Lymphocytes % 26.1 %; Mean Corpuscular HGB Conc 31.4 g/dL (30.0-36.0); Mean Corpuscular Hemoglobin 28.1 pg (28.0-34.0); Mean Corpuscular Volume 89.5 fl (81-99); Mean Platelet Volume 9.4 fL (7.4-10.4); Monocytes # 0.8 10^3/uL (0.2-0.9); Monocytes % 12.5 %; Neutrophils # 3.82 10^3/uL (1.8-7.7); Neutrophils % 59.7 %; Nucleated Red Blood Cells % 0 %; Platelet Count 338 10^3/cmm (130-400); Red Blood Count 3.99 10^6/uL (4.1-5.3); Red Cell Distribution Width 14.3 % (12.1-15.1); White Blood Count 6.4 10^3/uL (4.0-10.0)
[2022-05-16 19:01] LABS: Troponin(5th) Baseline 20 ng/L (0-10)
[2022-05-16 19:48] LABS: Anion Gap 13.4 (5-19); Blood Urea Nitrogen 20 mg/dL (6-20); Calcium 9.1 mg/dL (8.5-10.5); Carbon Dioxide 24 mmol/L (22-29); Chloride 93 mmol/L (98-107); Glomerular Filtration Rate 103.4 mL/min (90-130); Glucose 190 mg/dL (65-115); NT Pro B Type Natriuretic Pept 163 pg/mL (0-125); Osmolality Calculated 270 mOsm/kg (285-295); Potassium 4.4 mmol/L (3.5-5.1); Sodium 126 mmol/L (136-145)
[2022-05-16 20:45] VITALS: BP 175/103; PULSE 103; RESP 16; O2SAT 98
[2022-05-16 21:03] LABS: Troponin 5 2HR 17.07 ng/L (0-10)
[2022-05-16 21:06] LABS: Troponin 5 2HR Delta -2.93 ABS# (0-10)
[2022-05-16 21:21] VITALS: PULSE 100; RESP 16; O2SAT 97
[2022-05-16] MEDS: albuterol 8 gm MDI 1 PUFF INHALATION (21:21)
[2022-05-16 21:42] VITALS: PULSE 103; RESP 18; O2SAT 93
== END 2022-05-16 21:43 | disposition home or self-care (01) ==
PROVIDERS: Emergency Provider Family Medicine; PCP Nurse Practitioner Family
DX: J44.1 Chronic obstructive pulmonary disease with (acute) exacerbation (principal); K59.01 Slow transit constipation; Z79.84 Long term (current) use of oral hypoglycemic drugs; Z79.82 Long term (current) use of aspirin; Z79.4 Long term (current) use of insulin; Z20.822 Contact with and (suspected) exposure to COVID-19; E11.9 Type 2 diabetes mellitus without complications; I10 Essential (primary) hypertension; F17.210 Nicotine dependence, cigarettes, uncomplicated
CPT/HCPCS: 36415; 71045; 80048; 83880; 84484; 85025; 87040; 87426; 87804; 93005; 94640; 99285; J3535

== ENCOUNTER 2022-07-21 20:32 | Emergency (ER) | payer OTHER, MEDICAID, SELFPAY ==
[2022-07-21 20:33] VITALS: BP 189/130; PULSE 111; RESP 14; TEMP 36.1; O2SAT 95; BMI 2980.7
[2022-07-21] MEDS: sodium chloride 0.9% 1,000 ML 999 ML IV (20:42)
[2022-07-21] MEDS: ondansetron 2 mg/ML SDV 2 mL 4 MG IVP (20:43)
[2022-07-21] MEDS: labetalol 5 mg/mL SDV 20mL 10 MG IVP (20:44)
--- NOTE | 2022-07-21 20:48 | ED_ITS ---
HPI - Nausea/Vomiting/Diarrhea General: Chief complaint: Nausea/Vomiting/Diarrhea Stated complaint: N/V/D Time Seen by Provider: 07/21/22 20:36 Source: patient and EMS Mode of arrival: EMS Limitations: no limitations History of Present Illness: 56-year-old female who states she has been having nausea vomiting along with diarrhea since this afternoon. She denies any abdominal pain she denies any fever she states she has vomited multiple times is unable to keep it under control at home. Patient is in no distress here. Denies any chest pain. Associated nausea: Yes Associated symtoms: Reports nausea; Denies chest pain, dysuria or headache(s) Review of Systems Const: Denies: fever(s), chills, body aches or change in appetite Eyes: Denies: blurry vision or eye discomfort ENMT: Denies: throat pain or dental pain Card: Denies: chest pain Resp: Denies: dyspnea GI: Reports: nausea, vomiting and diarrhea : Denies: dysuria Musc: Denies: neck pain or back pain Skin/Breast: Denies: rash Neuro: Denies: headache(s) Psych: Denies: depression Bogdan/Lymph: Denies: easy bruising All/Imm: Denies: urticaria PFSH ED PFSH: Medical History Acute encephalopathy Anemia Confusion Fever History of hypertension History of type 2 diabetes mellitus Hyponatremia Iron (Fe) deficiency anemia Pelvic mass Surgical History History of left hip replacement Family History Mother CAD (coronary artery disease) Social History Smoking and tobacco status: current some day smoker Alcohol intake: never Physical Exam Const: COMMON NORMALS: no acute distress, patient oriented x3 and healthy appearing HENMT: COMMON NORMALS: normocephalic and atraumatic HEAD & SCALP: normocephalic and atraumatic Eye: COMMON NORMALS: Equal, round and reactive pupils present and EOMs intact bilaterally PUPIL: Yes Equal, round and reactive pupils present Neck/C-Spine: COMMON NORMALS: full ROM and supple Chest: COMMONS NORMALS: normal inspection of the chest and normal palpation of entire chest wall Resp: COMMON NORMALS: normal respiratory effort, No retractions, No use of accessory muscles and clear to auscultation bilaterally AUSCULTATION: clear to auscultation bilaterally Cardio: COMMON NORMALS: regular rhythm and No murmurs present (Cardio) RATE: tachycardic RHYTHM: regular rhythm GI: COMMON NORMALS: Normal to inspection, nondistended, normoactive bowel sounds present, Soft to palpation, non-tender and no masses PALPATION: Yes Soft to palpation Extremity: COMMON NORMALS: normal to inspection and full ROM Neuro: COMMON NORMALS: patient oriented x3, moves all extremities and no focal motor deficits Psych: COMMON NORMALS: mental status grossly normal, Normal thought process present and cooperative THOUGHT PROCESS: Normal thought process present Skin: COMMON NORMALS: no rashes or lesions noted and no wounds GENERAL SKIN EXAM: no rashes or lesions noted Course Vital Signs: Vital signs: Vital Signs Temperature 96.9 F L 07/21/22 20:33 Pulse Rate 106 H 07/21/22 22:02 Respiratory Rate 16 07/21/22 22:02 Blood Pressure 160/128 07/21/22 22:02 Pulse Oximetry 98 07/21/22 22:02 Oxygen Delivery Me thod 07/21/22 20:33 MDM - Nausea/Vomiting/Diarrhea Medical Decision Making Patient presents here with nausea vomiting is much improved here after Zofran her blood work here is normal abdominal exam is benign no signs of obstruction or surgical abdomen she is able to tolerate p.o. here after the Zofran we will prescribe her Zofran for home she is to follow-up with PCP and return if worsening. Lab Data 07/21/22 20:50 07/21/22 20:50 Laboratory Results WBC 12.9 10^3/uL (4.0-10.0) H 07/21/22 20:50 RBC 4.89 10^6/uL (4.1-5.3) 07/21/22 20:50 Hgb 12.4 g/dL (11.5-15.3) 07/21/22 20:50 Hct 41.0 % (37.0-47.0) 07/21/22 20:50 MCV 83.8 fl (81-99) 07/21/22 20:50 MCH 25.4 pg (28.0-34.0) L 07/21/22 20:50 MCHC 30.2 g/dL (30.0-36.0) 07/21/22 20:50 RDW 15.2 % (12.1-15.1) H 07/21/22 20:50 Plt Count 441 10^3/cmm (130-400) H 07/21/22 20:50 MPV 8.8 fL (7.4-10.4) 07/21/22 20:50 Neut % (Auto) 79.3 % 07/21/22 20:50 Lymph % (Auto) 14.5 % 07/21/22 20:50 [place] % (Auto) 4.7 % 07/21/22 20:50 Eos % (Auto) 0.3 % 07/21/22 20:50 Baso % (Auto) 0.8 % 07/21/22 20:50 Neut # (Auto) 10.23 10^3/uL (1.8-7.7) H 07/21/22 20:50 Lymph # (Auto) 1.9 10^3/uL (0.8-4.8) 07/21/22 20:50 [place] # (Auto) 0.6 10^3/uL (0.2-0.9) 07/21/22 20:50 Eos # (Auto) 0.0 10^3/uL (0.0-0.8) 07/21/22 20:50 Baso # (Auto) 0.1 10^3/uL (0.0-0.1) 07/21/22 20:50 Nucleated RBC % (auto) 0 % 07/21/22 20:50 Nucleated RBCs # 0.0 /100WBC 07/21/22 20:50 Sodium 138 mmol/L (136-145) 07/21/22 20:50 Potassium 3.9 mmol/L (3.5-5.1) 07/21/22 20:50 Chloride 95 mmol/L (98-107) L 07/21/22 20:50 Carbon Dioxide 26 mmol/L (22-29) 07/21/22 20:50 Anion Gap 20.9 (5-19) H 07/21/22 20:50 BUN 33 mg/dL (6-20) H 07/21/22 20:50 Creatinine 0.7 mg/dL (0.5-0.9) 07/21/22 20:50 GFR Calculation 86.6 mL/min (90-130) L 07/21/22 20:50 Glucose 173 mg/dL (65-115) H 07/21/22 20:50 Calculated Osmolality 297 mOsm/kg (285-295) H 07/21/22 20:50 Calcium 10.3 mg/dL (8.5-10.5) 07/21/22 20:50 Total Bilirubin 0.2 mg/dL (0.15-1.2) 07/21/22 20:50 AST 20 U/L (0-32) 07/21/22 20:50 ALT 51 U/L (0-33) H 07/21/22 20:50 Alkaline Phosphatase 290 U/L (35-105) H 07/21/22 20:50 Total Protein 8.0 g/dL (6.6-8.7) 07/21/22 20:50 Albumin 4.0 g/dL (3.5-5.2) 07/21/22 20:50 Globulin 4.0 g/dL (1.3-4.6) 07/21/22 20:50 Lipase 103 U/L (13-60) H 07/21/22 20:50 Discharge Plan Discharge Patient Disposition: Home Clinical Impression: Vomiting Condition: Stable Prescriptions: New ondansetron 4 mg tablet,disintegrating 4 mg PO Q6H PRN (Reason: nausea and vomiting) Qty: 14 0RF No Action ProAir HFA 90 mcg/actuation HFA aerosol inhaler 2 inh inhalation Q6H PRN (Reason: shortness of breath or wheezing) Qty: 8.5 2RF Rx Instructions: prn shortness of breath or wheezing prednisone 20 mg tablet 20 mg PO DAILY 5 Days Qty: 5 1RF Rx Instructions: for inflammation Senokot Extra Strength 17.2 mg tablet 17.2 mg PO BID PRN (Reason: constipation) Qty: 14 1RF Fleet Mineral Oil Enema 118 ml [place] DAILY PRN (Reason: constipation) Qty: 133 3RF Rx Instructions: discard any unused portion citalopram 40 mg tablet 40 mg PO DAILY atorvastatin 10 mg tablet 10 mg PO QPM gabapentin 400 mg capsule 400 mg PO TID aspirin 81 mg Tablet,Delayed Release (Dr/Ec) 81 mg PO DAILY metformin 1,000 mg tablet 1,000 mg PO BID montelukast 10 mg tablet 10 mg PO DAILY Jardiance 25 mg tablet 25 mg PO DAILY Qty: 30 0RF lisinopril 10 mg Tablet 10 mg PO DAILY cefpodoxime 200 mg tablet 200 mg PO BID Qty: 20 0RF Rx Instructions: must administer with a meal/food Levemir FlexTouch U-100 Insuln 100 unit/mL (3 mL) insulin pen 22 unit SUBCUT BEDTIME Qty: 15 0RF Discharge Orders: Discharge ED (Routine); Ordered 07/21/22 Ordered By: Errol Aguilar Referrals: Reema Delgado, BIT SHARPENER OPERATOR [Primary Care Provider] - Discharge Diet: Advance as tolerated Discharge Activity: Resume usual activity Patient Instructions: Acute Nausea and Vomiting (DC) Coding Level of Care Code ED Conveyancer for Yocasta Ramirez
[2022-07-21 21:02] LABS: Basophils # 0.1 10^3/uL (0.0-0.1); Basophils % 0.8 %; Eosinophils % 0.3 %; Hemoglobin 12.4 g/dL (11.5-15.3); Lymphocytes # 1.9 10^3/uL (0.8-4.8); Lymphocytes % 14.5 %; Mean Corpuscular HGB Conc 30.2 g/dL (30.0-36.0); Mean Corpuscular Hemoglobin 25.4 pg (28.0-34.0); Mean Corpuscular Volume 83.8 fl (81-99); Mean Platelet Volume 8.8 fL (7.4-10.4); Monocytes # 0.6 10^3/uL (0.2-0.9); Monocytes % 4.7 %; Neutrophils # 10.23 10^3/uL (1.8-7.7); Neutrophils % 79.3 %; Nucleated Red Blood Cells % 0 %; Platelet Count 441 10^3/cmm (130-400); Red Blood Count 4.89 10^6/uL (4.1-5.3); Red Cell Distribution Width 15.2 % (12.1-15.1); White Blood Count 12.9 10^3/uL (4.0-10.0)
[2022-07-21 21:12] VITALS: BP 181/116; PULSE 100; RESP 16; O2SAT 95
[2022-07-21 21:13] LABS: Alanine Aminotransferase 51 U/L (0-33); Alkaline Phosphatase 290 U/L (35-105); Anion Gap 20.9 (5-19); Aspartate Amino Transferase 20 U/L (0-32); Blood Urea Nitrogen 33 mg/dL (6-20); Calcium 10.3 mg/dL (8.5-10.5); Carbon Dioxide 26 mmol/L (22-29); Chloride 95 mmol/L (98-107); Glomerular Filtration Rate 86.6 mL/min (90-130); Glucose 173 mg/dL (65-115); Lipase 103 U/L (13-60); Osmolality Calculated 297 mOsm/kg (285-295); Potassium 3.9 mmol/L (3.5-5.1); Sodium 138 mmol/L (136-145); Total Bilirubin 0.2 mg/dL (0.15-1.2)
[2022-07-21] MEDS: hyDRALAzine 20 mg/mL INJ 1 mL 10 MG IVP (21:48)
[2022-07-21 22:02] VITALS: BP 160/128; PULSE 106; RESP 16; O2SAT 98
== END 2022-07-21 22:13 | disposition home or self-care (01) ==
PROVIDERS: Emergency Provider Emergency Medicine; PCP Nurse Practitioner Family
DX: R11.2 Nausea with vomiting, unspecified (principal)
CPT/HCPCS: 80053; 83690; 85025; 96361; 96374; 96375; 99284; J0360; J2405; J3490; J7030